=== PATIENT | male | born 1955 | race Caucasian/White ===

== ENCOUNTER → 2021-03-28 08:47 | Outpatient (BNVA) | payer MEDICAID, SELFPAY | PROVIDERS: PCP Physical Medicine & Rehabilitation; Visit Provider Anesthesiology | DX: M51.36 Other intervertebral disc degeneration, lumbar region (principal); G89.4 Chronic pain syndrome; M17.0 Bilateral primary osteoarthritis of knee; F11.20 Opioid dependence, uncomplicated; F17.210 Nicotine dependence, cigarettes, uncomplicated | CPT/HCPCS: 99202 ==

== ENCOUNTER 2021-04-12 05:48 | Outpatient (REF) | payer MEDICAID, SELFPAY ==
--- NOTE | ~2021-04-12 | FL_ITS ---
EXAMINATION: FL FLUOROSCOPY WITH IMAGES CLINICAL INFORMATION: Pain. COMPARISON: None TECHNIQUE: Fluoroscopy performed by Binu Daniel Fluoroscopy time: 0.1 minutes DAP: 0.4 Gycm2 Images: 2 FINDINGS: AP and lateral images demonstrate needle placement for geniculate nerve block. FL/FL guidance in treatment room IMPRESSION: Fluoroscopy guidance for pain management procedure.
== END 2021-04-12 05:49 | disposition home or self-care (01) ==
LOC: HO.RADIR 05:48
PROVIDERS: Visit Provider Anesthesiology
DX: M25.561 Pain in right knee (principal); M47.816 Spondylosis without myelopathy or radiculopathy, lumbar region; M51.36 Other intervertebral disc degeneration, lumbar region; G89.4 Chronic pain syndrome; F11.188 Opioid abuse with other opioid-induced disorder; M17.9 Osteoarthritis of knee, unspecified
CPT/HCPCS: 64454; J3300

== ENCOUNTER → 2021-04-20 09:44 | Outpatient (BNVA) | payer MEDICAID, SELFPAY | PROVIDERS: PCP Nurse Practitioner Family; Visit Provider Anesthesiology | DX: M47.816 Spondylosis without myelopathy or radiculopathy, lumbar region (principal); M51.36 Other intervertebral disc degeneration, lumbar region; G89.4 Chronic pain syndrome; F11.188 Opioid abuse with other opioid-induced disorder | CPT/HCPCS: 99212 ==

== ENCOUNTER → 2021-05-03 07:19 | Outpatient (BNVA) | payer MEDICAID, SELFPAY | PROVIDERS: PCP Nurse Practitioner Family; Visit Provider Anesthesiology | DX: M17.9 Osteoarthritis of knee, unspecified (principal) ==

== ENCOUNTER 2021-05-03 07:23 | Outpatient (REF) | payer MEDICAID, SELFPAY ==
--- NOTE | ~2021-05-03 | FL_ITS ---
EXAMINATION: XR FLUOROSCOPY WITH IMAGES CLINICAL INFORMATION: Osteoarthritis of knee. COMPARISON: None. TECHNIQUE: Fluoroscopy performed by Mabel Finley. Fluoroscopy time: 0.4 minutes DAP: 0.75 Gycm2 Images: 2 FINDINGS: There are needles positioned medial and lateral cortex distal femur and medial proximal tibial cortex for pain management. Mild reduction in the medial compartment joint space is seen. There are no loose bodies. FL/FL guidance in treatment room IMPRESSION: Fluoroscopy was provided to the referring physician for pain management.
== END 2021-05-03 07:24 | disposition home or self-care (01) ==
LOC: HO.RADIR 07:23
PROVIDERS: Visit Provider Anesthesiology
DX: M47.816 Spondylosis without myelopathy or radiculopathy, lumbar region (principal); M51.36 Other intervertebral disc degeneration, lumbar region; G89.4 Chronic pain syndrome; M17.0 Bilateral primary osteoarthritis of knee; F11.188 Opioid abuse with other opioid-induced disorder
CPT/HCPCS: 64624; J3300

== ENCOUNTER → 2021-05-18 08:08 | Outpatient (BNVA) | payer MEDICAID, SELFPAY | PROVIDERS: PCP Nurse Practitioner Family; Visit Provider Anesthesiology | DX: M47.816 Spondylosis without myelopathy or radiculopathy, lumbar region (principal); M51.36 Other intervertebral disc degeneration, lumbar region; M17.9 Osteoarthritis of knee, unspecified; G89.4 Chronic pain syndrome; F11.188 Opioid abuse with other opioid-induced disorder; I82.409 Acute embolism and thrombosis of unspecified deep veins of unspecified lower extremity | CPT/HCPCS: 93971; 99212 ==

== ENCOUNTER 2021-05-18 09:19 | Outpatient (REF) | payer MEDICAID, SELFPAY ==
--- NOTE | ~2021-05-18 | US_ITS ---
EXAMINATION: US VENOUS ULTRASOUND WITH DOPPLER LOWER EXTREMITY, RIGHT CLINICAL INFORMATION: Acute embolism and thrombosis. COMPARISON: None TECHNIQUE: Ultrasound of the deep veins is performed from the hip to the calf with compression sonography and color and pulse Doppler assessment. Spectral analysis with color-flow imaging is performed. FINDINGS: There is normal venous compression and respiratory variation and augmented flow. The visualized common femoral vein, superficial femoral vein, profunda femoral vein, popliteal vein, and the trifurcation region shows no evidence of deep venous thrombosis. There is no significant popliteal fossa cyst. If the patient's symptoms persist, followup ultrasound in 5 days 7 days might be of value to exclude proximal propagation from a non-visualized calf vein. US/US venous duplex LE RT IMPRESSION: No DVT demonstrated in the right lower extremity.
== END 2021-05-18 09:20 | disposition home or self-care (01) ==
LOC: HO.US 09:19
PROVIDERS: PCP Nurse Practitioner Family; Visit Provider Anesthesiology
DX: I82.409 Acute embolism and thrombosis of unspecified deep veins of unspecified lower extremity (principal)
CPT/HCPCS: 93971

== ENCOUNTER → 2021-06-06 08:06 | Outpatient (BNVA) | payer MEDICAID, SELFPAY | PROVIDERS: PCP Nurse Practitioner Family; Visit Provider Anesthesiology | DX: G89.4 Chronic pain syndrome (principal); M47.816 Spondylosis without myelopathy or radiculopathy, lumbar region; M51.36 Other intervertebral disc degeneration, lumbar region; F11.188 Opioid abuse with other opioid-induced disorder | CPT/HCPCS: 99212 ==

== ENCOUNTER → 2022-08-21 08:33 | Outpatient (BNVA) | payer OTHER, SELFPAY | PROVIDERS: PCP Nurse Practitioner Family; Visit Provider Anesthesiology | DX: M47.816 Spondylosis without myelopathy or radiculopathy, lumbar region (principal); M51.36 Other intervertebral disc degeneration, lumbar region; M17.9 Osteoarthritis of knee, unspecified; M25.561 Pain in right knee; G89.4 Chronic pain syndrome; F11.188 Opioid abuse with other opioid-induced disorder | CPT/HCPCS: 99212 ==

== ENCOUNTER 2022-08-31 08:35 | Outpatient (REF) | payer OTHER, SELFPAY ==
--- NOTE | ~2022-08-31 | XR_ITS ---
EXAMINATION: Knee x-ray CLINICAL INFORMATION: Pain COMPARISON: None. TECHNIQUE: 3 views of each knee FINDINGS: Right: There is varus angulation. Bones are osteopenic. No fracture or dislocation. Severe arthritis at the medial femoral tibial and patellofemoral joints. Moderate joint effusion. Left: Varus angulation. Osteopenia. No fracture or dislocation. Severe arthritis at the medial femoral tibial and patellofemoral joints. Moderate to large joint effusion. Osteophyte formation at the tibial tuberosity suggestive of old [place]-Schlatter's disease. XR/XR knee RT 2V IMPRESSION: Severe bilateral arthritis.
--- NOTE | ~2022-08-31 | XR_ITS ---
EXAMINATION: Knee x-ray CLINICAL INFORMATION: Pain COMPARISON: None. TECHNIQUE: 3 views of each knee FINDINGS: Right: There is varus angulation. Bones are osteopenic. No fracture or dislocation. Severe arthritis at the medial femoral tibial and patellofemoral joints. Moderate joint effusion. Left: Varus angulation. Osteopenia. No fracture or dislocation. Severe arthritis at the medial femoral tibial and patellofemoral joints. Moderate to large joint effusion. Osteophyte formation at the tibial tuberosity suggestive of old [place]-Schlatter's disease. XR/XR knee standing BI IMPRESSION: Severe bilateral arthritis.
--- NOTE | ~2022-08-31 | XR_ITS ---
EXAMINATION: Knee x-ray CLINICAL INFORMATION: Pain COMPARISON: None. TECHNIQUE: 3 views of each knee FINDINGS: Right: There is varus angulation. Bones are osteopenic. No fracture or dislocation. Severe arthritis at the medial femoral tibial and patellofemoral joints. Moderate joint effusion. Left: Varus angulation. Osteopenia. No fracture or dislocation. Severe arthritis at the medial femoral tibial and patellofemoral joints. Moderate to large joint effusion. Osteophyte formation at the tibial tuberosity suggestive of old [place]-Schlatter's disease. XR/XR knee LT 2V IMPRESSION: Severe bilateral arthritis.
== END 2022-08-31 08:36 | disposition home or self-care (01) ==
LOC: HO.HOSX 08:35
PROVIDERS: Visit Provider Orthopaedic Surgery
DX: M17.0 Bilateral primary osteoarthritis of knee (principal); F11.11 Opioid abuse, in remission; M47.816 Spondylosis without myelopathy or radiculopathy, lumbar region
CPT/HCPCS: 73560; 73565; 99202

== ENCOUNTER 2022-09-22 13:01 | Outpatient (REF) | payer OTHER, SELFPAY ==
--- NOTE | 2022-09-22 14:34 | MHC.AU.HA1 ---
Hearing Aid Evaluation Date of Visit: 09/22/22 Historical Information: Description of Hearing: Normal hearing at 250 Hz, precipitously dropping to a profound high frequency sensorineural hearing loss bilaterally with 26% speech understanding for the right ear and 28% for the left. Significant, almost daily, history of noise exposure for over 50 years with only occasional use of HPD. Current personal amplification information, if applicable: NONE Summary: Patient is experiencing significant communication difficulties related to this hearing loss. ENT did not discuss the impact of loss and very poor speech discrimination, or potential candidacy for cochlear implant(s). Today, discussed realistic expectations from hearing aids due to the very poor discrimination ability. Provided Communication Strategies handout. Discussed the pros and cons and demonstrated the custom vs. ALVIN/BTE styles of hearing aids. Patient is set on using the custom hearing aids. Patient has an [employer] [id number] Parameter Track Phone. Called Severiano and Nirmala to discuss compatibility. Severiano is not compatible. Nirmala says the model and bluetooth numbers look to be compatible; however, if the phone does not have a compatible hands free model, then they may not connect for phone calls. We will only know when the aids are fit and pairing attempted. Patient understands the potential problem, and wants to proceed with the Phonak aids Hearing Aid Prescription: Based on the individual?s shared listening needs, communication environments, dexterity, desire for connectivity, and personal preferences, the following prescription for amplification has been made: Right ear: Make, Model, Color: Phonak Virto P 70-312 [place] Battery Size: 312 Director Of Nurses Registry/Slim Tube: Power Left ear:Left ear prescription to be same as Right Hearing Aid above: Make, Model, Color: Phonak Virto P 70-312 [place] Battery Size: 312 Director Of Nurses Registry/Slim Tube: Power Plan of Care: Patient wishes to purchase hearing aids as prescribed Action Taken/Action Needed: Earmold Impressions Taken, Hearing Instrument Fitting to be scheduled when materials arrive Comments: Medical clearance from ENT in chart. Primary Diagnosis: H90.3 Bilateral Sensorineural Hearing Loss Signature:Provider: Kwame Ma, [facility]
== END 2022-09-22 13:02 | disposition home or self-care (01) ==
LOC: HO.HAP 13:01
PROVIDERS: Visit Provider Internal Medicine
DX: Z46.1 Encounter for fitting and adjustment of hearing aid (principal); H90.3 Sensorineural hearing loss, bilateral
CPT/HCPCS: 92591; V5275

== ENCOUNTER 2022-10-05 17:36 | Outpatient (REF) | payer OTHER, SELFPAY ==
--- NOTE | ~2022-10-05 | MR_ITS ---
EXAMINATION: MR LUMBAR SPINE WITHOUT CONTRAST CLINICAL INFORMATION: Low back pain. Bilateral lower extremity radiculopathy. COMPARISON: None available. TECHNIQUE: Multiplanar, multisequence imaging was obtained. FINDINGS: VERTEBRAL BODIES AND PARASPINAL STRUCTURES: The marrow signal is mildly heterogeneous with regions of fatty change. Reduced intradiscal signal present throughout the imaged lower thoracic and lumbar spine due to degeneration. Multilevel endplate Schmorl's nodes present. There are no compression fractures. Right lateral endplate edema visible at the L5-S1 level with moderate disc space narrowing and a minimal anterolisthesis. There is more significant loss of disc height at the L4-L5 level with prominent endplate Schmorl's nodes and mild retrosubluxation. There is a grade 1 anterolisthesis with unroofing of the disc at the L3-L4 level. Moderate multilevel disc space narrowing and degenerative disc bulges with endplate Schmorl's nodes present at the lower thoracic levels. There is a rightward curvature of the lumbar spine. The paraspinal soft tissues are unremarkable. Eaql-uh-hqskzyoa degenerative changes affect the sacroiliac joints bilaterally. CONUS MEDULLARIS AND CAUDA EQUINE: The distal cord, conus tip, and cauda equina nerve roots appear normal. SPINAL LEVELS: L1-L2: Moderate loss of disc height with endplate Schmorl's nodes and a mild disc bulge. No central canal stenosis or foraminal narrowing. L2-L3: Disc degeneration and broad-based posterior disc bulge with a midline posterior annular fissure. Hypertrophic facet arthropathy also present. Findings result in mild central canal stenosis and moderate bilateral foraminal narrowing. Bulging disc contacts the L3 nerve roots in the subarticular zones. L3-L4: Anterolisthesis and unroofed disc bulge with exuberant facet arthropathy and thickening of the ligamentum flavum. Findings result in high-grade central canal stenosis and severe thecal sac compression. Facet spurring impinges upon the L4 nerve roots in the lateral recesses as well. Significant bilateral foraminal encroachment with unroofed disc and facet spurring distorting the exiting L3 nerve roots, worse on the right side. L4-L5: Posterior subluxation and diffuse disc bulge with severe facet arthropathy resulting in moderate central canal stenosis. Bulging disc and facet spurring compress the L5 nerve roots in the subarticular zones. Severe bilateral foraminal narrowing and distortion of the L4 nerve roots. L5-S1: Mild anterolisthesis and broad-based disc bulge with hfogkcxe-mq-miznng facet arthropathy, worse on the right side. No central canal stenosis. Left-sided facet spurring and bulging disc impinge upon the left S1 nerve root. Severe bilateral foraminal narrowing and compression of the L5 nerve roots, worse on the right side. Mild endplate edematous changes laterally on the right side. MR/MR lumbar spine wo con IMPRESSION: 1. Extensive multilevel degenerative disc disease and facet arthropathy, most severe at the L3-L4 level where there is high-grade central canal stenosis and thecal sac compression. Facet spurring impinges upon the L4 nerve roots in the lateral recesses. Significant foraminal narrowing with distortion of the L3 nerve roots, worse on the right side. 2. Moderate central canal stenosis due to spondylosis at L4-L5 with compression of the L5 nerve roots in the subarticular zones. Severe foraminal narrowing with distortion of the L4 nerve roots. 3. Mild anterolisthesis and uaqdbozo-md-qwzooa facet arthropathy at L5-S1. Bulging disc and facet spurring impinge upon the left S1 nerve root. Severe foraminal narrowing with compression of the L5 nerve roots, more so on the right side. 4. Mild central canal stenosis at the L2-L3 level with moderate bilateral foraminal narrowing and bulging disc contacting the L3 nerve roots in the subarticular zones.
== END 2022-10-05 17:37 | disposition home or self-care (01) ==
LOC: HO.MRI 17:36
PROVIDERS: PCP Family Medicine; Visit Provider Orthopaedic Surgery
DX: M47.816 Spondylosis without myelopathy or radiculopathy, lumbar region (principal); M54.16 Radiculopathy, lumbar region
CPT/HCPCS: 72148

== ENCOUNTER 2022-10-18 14:48 | Outpatient (REF) | payer OTHER, SELFPAY | END 2022-10-18 14:49 | disposition home or self-care (01) | LOC: HO.HAP 14:48 | PROVIDERS: PCP Family Medicine; Visit Provider Otolaryngology | DX: Z46.1 Encounter for fitting and adjustment of hearing aid (principal); H90.3 Sensorineural hearing loss, bilateral | CPT/HCPCS: 92595; V5011; V5020; V5160; V5260; V5266 ==

== ENCOUNTER 2022-11-08 14:36 | Outpatient (REF) | payer OTHER, SELFPAY | END 2022-11-08 14:37 | disposition home or self-care (01) | LOC: HO.HAP 14:36 | PROVIDERS: Visit Provider Family Medicine | DX: Z13.89 Encounter for screening for other disorder (principal) ==

== ENCOUNTER 2022-12-01 09:25 | Outpatient (AMB) | payer OTHER, SELFPAY ==
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
== END 2022-12-01 10:11 | disposition home or self-care (01) ==
PROVIDERS: PCP Family Medicine; Referring Provider Orthopaedic Surgery; Visit Provider Physician Assistant
DX: M54.16 Radiculopathy, lumbar region (principal); R53.1 Weakness
CPT/HCPCS: 99204

== ENCOUNTER → 2022-12-01 09:25 | Outpatient (BNVA) | payer OTHER, SELFPAY | PROVIDERS: PCP Family Medicine; Referring Provider Orthopaedic Surgery; Visit Provider Physician Assistant | DX: M54.16 Radiculopathy, lumbar region (principal); M48.061 Spinal stenosis, lumbar region without neurogenic claudication; R53.1 Weakness | CPT/HCPCS: 99202 ==

== ENCOUNTER 2023-05-14 13:13 | Outpatient (REF) | payer MEDICAID, SELFPAY ==
--- NOTE | 2023-05-14 14:04 | MHC.AU.HA3 ---
Hearing Instrument Follow-Up- Binaural Date of Visit: 05/14/23 Right Ear: Make, Model, Color, Serial Number: Nirmala Virto P 70-312 [place] SN [id number] Stenocaptioner Repair Warranty: 01/06/2026 Stenocaptioner Loss and Damage Warranty: 01/06/2026 [facility] Service Plan: 10/19/2023 Battery Size: 312 Heading And Priming Operator/Slim Tube: Power Earmold/Dome/CShell/SlimTip: Type of Wax Guard: Cerustop Dispensed By: Date of Fittin10/18/2022 Left Ear: Make, Model, Color, Serial Number: Nirmala Virto P 70-312 [place] SN [id number] Stenocaptioner Repair Warranty: 01/06/2026 Stenocaptioner Loss and Damage Warranty: 01/06/2026 [facility] Service Plan: Battery Size: 312 Heading And Priming Operator/Slim Tube: Power Earmold/Dome/CShell/SlimTip: Type of Wax Guard: Cerustop Dispensed By: Date of Fittin10/18/2022 Follow-Up Summary: Reports aids intermittently lose connection to phone. Cleaned and checked aids, listening check positive. Checked for firmware update, aids are UTD. Forgot pairings. Re connected aids in bluetooth settings and in leti. Tested streaming connection in office, working. Recommendations: Recommendations: Hearing instrument follow-up or maintenance as needed. Diagnosis Code(s): Primary Diagnosis: H90.3 Bilateral Sensorineural Hearing Loss Signature: Provider: Kwame Celis, CCC-A
== END 2023-05-14 13:14 | disposition home or self-care (01) ==
LOC: HO.HAP 13:13
PROVIDERS: Visit Provider Family Medicine
DX: Z13.89 Encounter for screening for other disorder (principal)

== ENCOUNTER 2023-05-17 17:58 | Outpatient (REF) | payer MEDICAID, SELFPAY ==
--- NOTE | ~2023-05-17 | MR_ITS ---
EXAMINATION: MR BRAIN WITHOUT CONTRAST CLINICAL INFORMATION: Weakness COMPARISON: None available. TECHNIQUE: MRI of the brain was obtained using routine sequences without contrast. FINDINGS: No acute intracranial hemorrhage or infarct. Scattered and confluent periventricular white matter T2/FLAIR hyperintensities, nonspecific however commonly seen with small vessel ischemic disease. No midline shift or hydrocephalus. No acute extra-axial fluid collections. The osseous structures are unremarkable. The pituitary gland, pineal gland and remaining midline structures are unremarkable. No orbital pathology. Mild mucosal thickening of the paranasal sinuses. The mastoid air cells are clear. MR/MR head/brain wo con IMPRESSION: No acute intracranial abnormality.
--- NOTE | ~2023-05-17 | MR_ITS ---
EXAMINATION: MR CERVICAL SPINE WITHOUT CONTRAST CLINICAL INFORMATION: Cervical radiculopathy, weakness COMPARISON: None available. TECHNIQUE: MRI of the cervical spine was obtained using routine sequences without contrast. FINDINGS: The visualized cervical vertebrae are intact. No focal bone lesion with abnormal signal can be seen. Evaluation of the intervertebral discs show: C2/C3: Intervertebral disc height is normal, with normal T2 signal. No focal disc herniation is seen. Bilateral C2-C3 neural foramina are patent. Bilateral apophyseal joints are intact with normal alignment. C3/C4: There is anterior C3 on C4 displacement by 0.35 cm. Intervertebral disc height is moderately decreased, with moderate loss of T2 signal. Mild posterior disc protrusion effacing the anterior thecal sac is seen. There is moderate spinal stenosis with AP diameter of the spinal canal reduced to 8.1 mm. Bilateral C3-C4 neural foramina are severely stenosed. Bilateral apophyseal joints are intact with normal alignment. C4/C5: There is posterior C4 on C5 displacement by 0.31 cm. Intervertebral disc height is markedly decreased, with marked loss of T2 signal. Moderate posterior osteophyte disc complex protrusion effacing the anterior thecal sac is seen. There is marked spinal stenosis with AP diameter of the spinal canal reduced to 7.6 mm. Bilateral C4-C5 neural foramina are severely stenosed. Bilateral apophyseal joints are intact with normal alignment. C5/C6: Intervertebral disc height is normal, with moderate loss of T2 signal. Mild posterior disc protrusion effacing the anterior thecal sac is seen. There is marked asymmetric right C5-C6 neural foraminal stenosis. Bilateral apophyseal joints are intact with normal alignment. C6/C7: Intervertebral disc height is normal, with normal T2 signal. No focal disc herniation is seen. Bilateral C6-C7 neural foramina are patent. Bilateral apophyseal joints are intact with normal alignment. C7/T1: Intervertebral disc height is normal, with normal T2 signal. No focal disc herniation is seen. Bilateral C7-T1 neural foramina are patent. Bilateral apophyseal joints are intact with normal alignment. Cervical spinal cord is normal in position and signal. Multilevel bilateral apophyseal joint and uncovertebral joint osteoarthritis with loss of joint space, sclerosis, facet hypertrophy and osteophytosis are seen. Mild posterior T3-T4 and T4-T5 disc protrusions are also present. MR/MR cervical spine wo con IMPRESSION: 1. Grade 1 C3-C4 spondylolisthesis with moderate degenerative disc disease and moderate spinal stenosis. Severe bilateral neural foraminal stenosis. 2. Grade 1 C4-C5 retrolisthesis with moderate degenerative disc disease and marked spinal stenosis. Severe bilateral neural foraminal stenosis. 3. Mild posterior disc protrusion at C5-C6 with marked asymmetric right C5-C6 neural foraminal stenosis. 4. Multilevel bilateral apophyseal joint and uncovertebral joint osteoarthritis. 5. Mild posterior disc protrusions at T3-T4 and T4-T5.
== END 2023-05-17 17:59 | disposition home or self-care (01) ==
LOC: HO.MRI 17:58
PROVIDERS: PCP Family Medicine; Visit Provider Physician Assistant
DX: R53.1 Weakness (principal); M54.12 Radiculopathy, cervical region
CPT/HCPCS: 70551; 72141

== ENCOUNTER 2023-05-30 13:11 | Outpatient (AMB) | payer MEDICAID, SELFPAY ==
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
== END 2023-05-30 13:35 | disposition home or self-care (01) ==
PROVIDERS: PCP Family Medicine; Visit Provider Neurological Surgery
DX: M47.12 Other spondylosis with myelopathy, cervical region (principal); M47.22 Other spondylosis with radiculopathy, cervical region; M47.816 Spondylosis without myelopathy or radiculopathy, lumbar region
CPT/HCPCS: 99214

== ENCOUNTER → 2023-05-30 13:11 | Outpatient (BNVA) | payer MEDICAID, SELFPAY | PROVIDERS: PCP Family Medicine; Visit Provider Neurological Surgery | DX: M47.12 Other spondylosis with myelopathy, cervical region (principal); M47.22 Other spondylosis with radiculopathy, cervical region; M47.816 Spondylosis without myelopathy or radiculopathy, lumbar region | CPT/HCPCS: 99212 ==

== ENCOUNTER 2023-08-08 06:43 | Day surgery (SDC) | payer MEDICAID, SELFPAY ==
[2023-07-25 12:32] VITALS: BP 135/72; PULSE 72; RESP 18; O2SAT 96; BMI 29.0
--- NOTE | 2023-08-07 13:36 | HO.ANESPROP2 ---
HPI - Anesthesia Eval Consult details Narrative: 67yo M for C3-4,C4-5 Ant Cerv Disc w/ Fusion Multi PAT with Dr Pineda 07/25/23 Medically cleared at [facility] preop clinic Hx poly sub. Suboxone daily PMFSH Active Problems Active Problems: All Active Problems Cervical spondylosis with myelopathy and radiculopathy (Acute) Left-sided weakness (Acute) Lumbar radiculopathy (Acute) History of opioid abuse (Acute) Osteoarthritis of left knee (Acute) Osteoarthritis of right knee (Acute) Right knee pain (Acute) DVT (deep venous thrombosis) (Acute) Osteoarthritis of knee, unspecified (Acute) Opioid abuse with other opioid-induced disorder (Acute) Chronic pain syndrome (Acute) Disc degeneration, lumbar (Acute) Spondylosis of lumbar spine (Acute) Past Medical History Medical History Back pain Arthritis GERD (gastroesophageal reflux disease) Numbness AAA (abdominal aortic aneurysm) History of kidney stones C6 radiculopathy Hard of hearing Central stenosis of spinal canal Knee osteoarthritis Trauma in childhood Erectile dysfunction Anemia Adrenal adenoma Tobacco abuse Pulmonary nodules Depression History of ETOH abuse Osteoarthritis of knee, unspecified Opioid abuse with other opioid-induced disorder Chronic pain syndrome Disc degeneration, lumbar Spondylosis of lumbar spine Surgical History Surgical History History of extraction of renal calculus H/O colonoscopy H/O inguinal hernia repair Social History Social History Are you a primary manager urgent care to a significant other at home: No Do you presently have visiting nurse or other home services: No Alcohol intake: former Comment: pressure Patient Tobacco Use Status: Current everyday Tobacco user Tobacco use type: Cigarette Cigarettes Per Day: 4 Advance Directives: No Advance Directives Information Provided: No Do you have a plan to hurt others: No Plan Meds Allergies Allergy/AdvReac Type Severity Reaction Status Date / Time No Known Allergies Allergy Verified 08/10/23 15:22 Home Medications ?Medication ?Instructions ?Recorded ?Confirmed ?Last Taken ?Type buprenorphine 12 mg-naloxone 3 mg 8 mg sublingual BID 03/28/21 07/25/23 08/07/23 History sublingual film (Suboxone) naproxen 500 mg tablet 500 mg PO TID 03/28/21 07/25/23 08/07/23 History acamprosate 333 mg tablet,delayed 666 mg PO TID 07/25/23 07/25/23 08/07/23 History release bupropion HCl 100 mg tablet,12 hr 100 mg PO BID 07/25/23 07/25/23 08/07/23 History sustained-release capsaicin 0.075 % topical cream 1 appl topical BID 07/25/23 07/25/23 08/07/23 History gabapentin 100 mg capsule 200 mg PO BID 07/25/23 07/25/23 08/07/23 History ibuprofen 200 mg tablet 400 mg PO Q8H PRN Pain 07/25/23 07/25/23 08/07/23 History omeprazole 20 mg tablet,delayed 60 mg PO DAILY@1700 07/25/23 07/25/23 08/07/23 History release Exam Height,Weight and Vital Signs: Height 5 ft 3 in Weight 74.389 kg Last Vital Signs Pulse 72 07/25/23 12:32 Resp 18 07/25/23 12:32 BP 135/72 07/25/23 12:32 Pulse Ox 96 07/25/23 12:32 O2 Del Method Room Air 07/25/23 12:32 Pertinent Lab Results Pertinent Lab Results: CBC and BMP 05/2023 from outside facility WNL Narrative Narrative: EKG 07/2023 NSR with SA Low volt QRS Assessment and Plan Assessment Anesthesia Assessment: Chart Reviewed
--- NOTE | ~2023-08-08 | FL_ITS ---
EXAMINATION: XR FLUOROSCOPY WITH IMAGES CLINICAL INFORMATION: C3-4, C4-5 anterior cervical disc fusion COMPARISON: None available. TECHNIQUE: Fluoroscopy Supervised By: Dr. Johnny Aviles. Fluoroscopy Time: 0: 04. 9. Cumulative Dose: 0.8440 mGy. DAP: 0.262 Gycm2. Images: 3. FINDINGS: Fluoroscopic guidance provided for procedure. Images provided demonstrate overlying surgical hardware and devices with anterior disc hardware at C3-C4-C5 levels. Please refer to operative report for more detailed evaluation. FL/FL guidance in OR IMPRESSION: Fluoroscopic guidance provided for procedure. Please refer to operative report for more detailed evaluation.
--- NOTE | 2023-08-08 06:58 | MHC.SHP ---
Pre-Procedural Eval Section A - 24 Hr Update-Section A only Date of Service: 08/08/23 Section B - Complete if H&P > 30 days Chief Complaint: Other spondylosis with myelopathy, cervical region Allergies: Allergies Allergy/AdvReac Type Severity Reaction Status Date / Time No Known Allergies Allergy Verified 06/06/21 08:25 Review of Systems Sugical H&P ROS: Negative: Constitution, Cardiovascular, Respiratory, Neurological, Psychiatric, Hem-Onc, Allergic/Immunologic, Gastrointestinal, Genitourinary, Musculoskeletal, Integumentary, Endocrine and Eyes/Ears/Nose/Throat Exam Surgical H&P Exam: Not Evaluated: HEENT, Not Evaluated: Heart, Not Evaluated: Lungs, Not Evaluated: Extremities, Not Evaluated: Abdomen, Not Evaluated: Skin and Not Evaluated: Neurological Plan I have reviewed the history and physical and performed a pertinent physical examination on my patient. No changes have occurred unless specified. The plan remains the same, C3-4, C4-5 ACDF. Time Spent With Patient Time: Total time managing care of this patient today _10___ minutes.
[2023-08-08 07:18] VITALS: BP 114/73; PULSE 75; RESP 18; TEMP 37.2; O2SAT 92
[2023-08-08] MEDS: Gabapentin 300 MG CAPSULE PO (07:31)
[2023-08-08] MEDS: methocarbamoL 750 MG TABLET PO (07:31)
[2023-08-08] MEDS: Lactated Ringers 1,000 ML 100 ML IVCONT (07:31)
--- NOTE | 2023-08-08 08:06 | HO.ANESPROP2 ---
[facility] Active Problems Active Problems: All Active Problems Cervical spondylosis with myelopathy and radiculopathy (Acute) Left-sided weakness (Acute) Lumbar radiculopathy (Acute) History of opioid abuse (Acute) Osteoarthritis of left knee (Acute) Osteoarthritis of right knee (Acute) Right knee pain (Acute) DVT (deep venous thrombosis) (Acute) Osteoarthritis of knee, unspecified (Acute) Opioid abuse with other opioid-induced disorder (Acute) Chronic pain syndrome (Acute) Disc degeneration, lumbar (Acute) Spondylosis of lumbar spine (Acute) Past Medical History Medical History Back pain Arthritis GERD (gastroesophageal reflux disease) Numbness AAA (abdominal aortic aneurysm) History of kidney stones C6 radiculopathy Hard of hearing Central stenosis of spinal canal Knee osteoarthritis Trauma in childhood Erectile dysfunction Anemia Adrenal adenoma Tobacco abuse Pulmonary nodules Depression History of ETOH abuse Osteoarthritis of knee, unspecified Opioid abuse with other opioid-induced disorder Chronic pain syndrome Disc degeneration, lumbar Spondylosis of lumbar spine Functional capacity: uses cane/walker Family History Family history of problems with anesthesia: No Surgical History Surgical History History of extraction of renal calculus H/O colonoscopy H/O inguinal hernia repair History of Problems with Anesthesia: No Social History Social History Are you a primary acute care assistant to a significant other at home: No Do you presently have visiting nurse or other home services: No Patient Tobacco Use Status: Current everyday Tobacco user Tobacco use type: Cigarette Cigarettes Per Day: 4 Use of substances other than those prescribed or required for medical reasons: No Have you been hit, kicked, punched, or otherwise hurt by someone within the past year? If so, by whom?: No Are you DNR?: No Advance Directives: No Advance Directives Information Provided: Yes Advance Directives on File: No Recently lost weight without trying: No Eating poorly because of decreased appetite: No Nutrition Risks: No Nutritional Risk Poor oral hygiene: Yes (no teeth) Meds Allergies Allergy/AdvReac Type Severity Reaction Status Date / Time No Known Allergies Allergy Verified 06/06/21 08:25 Active Medications: Current Medications Albuterol Sulfate (Albuterol Sulfate (0.083%) 2.5 Mg/3 Ml Vial.Neb) 2.5 mg INHALE ONCE PRN PRN Reason: Shortness of Breath/Wheezing Lactated Ringer's (Lr) 1,000 mls @ 100 mls/hr IVCONT .Q10H TOSHIA Last Admin: 08/08/23 07:31 Dose: 100 mls/hr Home Medications ?Medication ?Instructions ?Recorded ?Confirmed ?Last Taken ?Type buprenorphine 12 mg-naloxone 3 mg 8 mg sublingual BID 03/28/21 07/25/23 Unknown History sublingual film (Suboxone) naproxen 500 mg tablet 500 mg PO TID 03/28/21 07/25/23 Unknown History acamprosate 333 mg tablet,delayed 666 mg PO TID 07/25/23 07/25/23 Unknown History release bupropion HCl 100 mg tablet,12 hr 100 mg PO BID 07/25/23 07/25/23 Unknown History sustained-release capsaicin 0.075 % topical cream 1 appl topical BID 07/25/23 07/25/23 Unknown History gabapentin 100 mg capsule 200 mg PO BID 07/25/23 07/25/23 Unknown History ibuprofen 200 mg tablet 400 mg PO Q8H PRN Pain 07/25/23 07/25/23 Unknown History omeprazole 20 mg tablet,delayed 60 mg PO DAILY@1700 07/25/23 07/25/23 Unknown History release Exam Height,Weight and Vital Signs: Height 5 ft 3 in Weight 74.389 kg Last Vital Signs Temp 98.9 F 08/08/23 07:18 Pulse 75 08/08/23 07:18 Resp 18 08/08/23 07:18 BP 114/73 08/08/23 07:18 Pulse Ox 92 08/08/23 07:18 O2 Del Method Room Air 08/08/23 07:18 Airway Mallampati Class: III TM Dist: >3cm Neck ROM: Full Heart: RRR Lungs: CTA Assessment and Plan Assessment Anesthesia Assessment: Anesthesia Plan Discussed and Smoking Cess. Discussed Final Anesthetic Review Family History of Problems with Anesthesia: No History of Problems with Anesthesia: No NPO: Yes ASA Class: III Final Preanesthetic Review: Meds/Allgs Chart Reviewed, Consent Obtained/Reviewed and Anes Risks/Benef Reviewed Patient Risk: Intermediate Procedure Risk: Intermediate Anesthetic Plan Anesthetic Plan: GA Disposition: Standard PACU
--- NOTE | 2023-08-08 11:24 | P.OP_ITS ---
Operative Note Operative Note Date of Service: 08/08/23 Narrative: Preoperative Diagnosis: Cervical myelopathy Procedure: C3-C4, C4-C5 Anterior discectomy, arthrodesis and implantation cage ; C3-C5 anterior instrumentation ; local autograft; microscope Informed Consent was obtained for this operation. I have explained the nature, purpose and benefits of the operation. I have discussed the risks and benefit of the operation including possible complications or adverse events with pat ient/family. Alternative(s) were discussed with the patient with their relative benefits and risks as well as the consequences of not accepting the operation were included in obtaining consent. Surgeon: FITO JARVIS MD, PHD Procedure Assisted By: BAIRON Flores Description of Procedure: This 67-year-old male suffering from progressive cervical myelopathy. MRI shows severe spinal cord compression C3-C4, C4-C5. He was offered an anterior diskectomy and fusion of these levels. The procedure complications were explained. The patient was consented. The patient was brought to the operating room and endotracheally intubated. The patient was put in supine position with slight extension of the neck. Prep and drape was done followed by timeout. A mid cervical incision was made followed by opening of the platysma. The prevertebral fascia was reached following the natural planes while the physician executive administrative assistant provided manual retraction. The prevertebral fascia was opened to expose the disc space. A spinal needle was placed in the disk space to confirm the correct level with xray. The longus colli muscles were released bilaterally and a self retaining retractor was inserted. An initial diskectomy was done of the C3-4 and C4-C5 level. Two Biscoe pins were placed in the C3-C4 vertebral bodies and distraction was give over the interspace. The discectomy was completed toward the posterior annulus of the disc. The microscope was brought in. The remainder of the discectomy was completed. The posterior ligament was opened and resected to expose the underlying dura. Osteophytes were resected from the body of C3 and C4 and saved for autograft. Bilateral foraminotomies were done. The endplates were prepared after which a 6 mm cage filled with autograft was inserted into the disc space. A separate attached plate was locked down with 2 x 14 mm screws as anterior instrumentation. Then attention was turned to the C4-C5 level. The diskectomy was completed and the posterior longitudinal ligament was opened to expose the underlying dura. Several large osteophytes were resected from the body of C4 and C5 to decompress the spinal cord. Bilateral foraminotomies down. The endplates were prepared after which a 6 mm cage was inserted filled with the autograft. Separate attached plate was locked down with 2 x 14 mm screws as anterior instrumentation. Final x-rays in AP and lateral projection showed a satisfactory position of the implants. The physician executive administrative assistant took over. The Biscoe pin was removed. Hemostasis was done. He closed the incision in 2 layers with a 3-0 Vicryl. Steri-Strips used to approximate incision. An OpSite with Tegaderm was used to cover the incision. All sponge and needle counts were correct. Patient was extubated and transported in stable is to recovery room. Anesthesia: General Estimated Blood Loss (ml): 10 mL Duration of Surgery: 1 hour 15 min Postoperative Plan: Discharge home Complications: None
--- NOTE | 2023-08-08 11:27 | P.DS_ITS ---
DS: Providers Provider Date of Service: 08/08/23 Primary care physician: Franca Wells MD DS: Summary Time Attestation Discharge Coordination Time (in mins): 15 Quality: Safe Use of Opioids Does Pt have an Active Cancer Diagnosis on the Problem List?: No Quality: Stroke Does the patient have a stroke diagnosis?: No Physical Exam Vital Signs: Vital Signs: Last Vital Signs Temp 98.9 F 08/08/23 07:18 Pulse 75 08/08/23 07:18 Resp 18 08/08/23 07:18 BP 114/73 08/08/23 07:18 Pulse Ox 92 08/08/23 07:18 O2 Del Method Room Air 08/08/23 07:18 BMI result Body Mass Index 29.0 Discharge Plan Discharge Patient Disposition: Home, Self-Care Referrals: Franca Wells MD [Primary Care Provider] - 1 Week Discharge Medications: New baclofen 10 mg tablet 10 mg PO TID Qty: 30 0RF acetaminophen 500 mg tablet 1,000 mg PO TID PRN (Reason: moderate pain (scale score 5-6)) Qty: 42 0RF Continued bupropion HCl 100 mg tablet sustained-release 12 hr 100 mg PO BID acamprosate 333 mg tablet,delayed release (DR/EC) 666 mg PO TID capsaicin 0.075 % Cream 1 appl TOPICAL BID Rx Instructions: do not wash area for at least 30 min after application ibuprofen 200 mg Tablet 400 mg PO Q8H PRN (Reason: Pain) gabapentin 100 mg Capsule 200 mg PO BID omeprazole 20 mg Tablet,Delayed Release (Dr/Ec) 60 mg PO DAILY@1700 buprenorphine-naloxone [Suboxone] 12-3 mg film 8 mg sublingual BID naproxen 500 mg tablet 500 mg PO TID Discharge Orders: Discharge Order (Routine); Ordered 08/08/23 Ordered By: Lv Andrea Diet: Advance to usual diet Activity on Discharge: As tolerated Activity Restrictions/Additional Instructions: After your spinal surgery we ask you to observe the following restrictions/guidelines: Activity: It is normal to feel pain in the back of your neck, and to have some discomfort with swallowing. It is normal to feel some discomfort as you increase your activity, but that will improve with time. We ask you avoid heavy lifting or acitivities that cause pain. As a general rule, 8lbs is a safe limit for lifting right after surgery. Walk as much as you feel comfortable but not to exhaustion. You will feel extra tired the first few days after surgery. Stay well hydrated. It is OK to walk up and down stairs You may return to driving when you are off narcotics (such as vicodin, oxycodone, dilaudid, etc), and you are back to normal functional capacity. If you have any concerns please check with office before driving. Return to work is specific to each patient and each surgery, so please speak with your doctor/PA at first follow up. Please bring paperwork such as FMLA at that time if you need it filled out. Medications: Your currently prescribed a narcotic opioid medication, so please continue using that for pain control. Additional opioid prescriptions would be contraindicated at this time. In addition to this we have sent in a prescriptio n for muscle relaxers and Tylenol. These can be refilled if needed. If you take blood thinner such as aspirin, Plavix, Coumadin, Effient, Eliquis etc for conditions such as Afib, DVT, Pulmonary embolus, coronary disease, stents etc please speak with your surgeon about specific details as to when you can resume these medications. You can resume NSAIDs on post op day 1 (eg: Motrin, Naproxen, etc). Follow up: Please call the office, , after surgery to arrange a 3 week follow up for wound check. Wound Care: You may remove your dressing on the first day after surgery. ?You may ?leave open to air. Please do not remove the steri strips underneath. they will fall off on their own in one week. IT IS NORMAL FOR THE WOUND TO OOZE OR BE BLOODY FOR A FEW DAYS AFTER SURGERY. ?IF THIS HAPPENS JUST PLACE NEW DRESSING OVER IT TO AVOID STAINING CLOTHES. You may shower on post op day # 1 We ask that you do not let the water soak the wound. If it does get wet, just towel dry lightly. Please do not scrub your incision or place any type of chemical/ointment on the wound. No tub baths, pools or jacuzzis for one month. If you have any leaking or redness from your wound, or fevers, please call the office. Print Language: [place] Citizen
[2023-08-08 11:36] VITALS: BP 124/75; PULSE 80; RESP 16; TEMP 36.4; O2SAT 92
[2023-08-08 11:41] VITALS: BP 126/69; PULSE 70; RESP 16; O2SAT 93
[2023-08-08 11:46] VITALS: BP 122/74; PULSE 69; RESP 16; O2SAT 98
[2023-08-08 11:51] VITALS: BP 130/73; PULSE 70; RESP 18; O2SAT 95
[2023-08-08 12:06] VITALS: BP 113/54; PULSE 67; RESP 18; TEMP 36.6; O2SAT 98
== END 2023-08-08 13:57 | disposition home or self-care (01) ==
PROVIDERS: PCP Family Medicine; Visit Provider Neurological Surgery
PROC: (CPT 22551; principal; 2023-08-08 08:40)
DX: M47.12 Other spondylosis with myelopathy, cervical region (principal); G89.4 Chronic pain syndrome; M47.816 Spondylosis without myelopathy or radiculopathy, lumbar region; Z79.1 Long term (current) use of non-steroidal anti-inflammatories (NSAID); Z79.899 Other long term (current) drug therapy; F11.10 Opioid abuse, uncomplicated; F17.210 Nicotine dependence, cigarettes, uncomplicated
CPT/HCPCS: 22551; 22552; 22853; 20936; 22845; C1713; C1889; J0131; J0690; J1100; J1170; J1596; J1885; J2250; J2405; J2704; J3010; L8699

== ENCOUNTER → 2023-08-08 06:43 | Outpatient (BNV) | payer MEDICAID, SELFPAY | PROVIDERS: PCP Family Medicine; Visit Provider Neurological Surgery | DX: M47.12 Other spondylosis with myelopathy, cervical region (principal) | CPT/HCPCS: 20936; 22551; 22552; 22845; 22853; 99499 ==

== ENCOUNTER 2023-08-10 14:45 | Emergency (ER) | payer MEDICAID, SELFPAY ==
--- NOTE | 2023-08-10 | ECG_ITS ---
Test Reason : AMS Blood Pressure : / mmHG Vent. Rate : 086 BPM Atrial Rate : 086 BPM P-R Int : 130 ms QRS Dur : 078 ms QT Int : 372 ms P-R-T Axes : 063 -18 077 degrees QTc Int : 445 ms Sinus rhythm with Premature supraventricular complexes Cannot rule out Anterior infarct , age undetermined Nonspecific ST and T wave abnormality Abnormal ECG No previous ECGs available Referred By: Generic ED Physician Electronically Signed By:DYAN WREN
--- NOTE | ~2023-08-10 | CT_ITS ---
EXAMINATION: CT head/brain wo IV con CLINICAL INFORMATION: Reason for Exam Change in mental status, R/O stroke, fracture, ble COMPARISON: MRI of the brain without contrast 05/17/2023 TECHNIQUE: Contiguous axial imaging was performed from the skull base to vertex without intravenous contrast. Sagittal and coronal reformatted images were obtained. This CT examination was performed using dose optimization techniques as appropriate, variously including the following: * Automated exposure control * Adjustment of mA and/or kV according to patient size (this includes techniques or standardized protocols for targeted exams where dose is matched to indication/reason for exam; i.e. extremities or head) Use of iterative reconstruction technique DLP: 867 mGy-cm FINDINGS: No acute osseous or soft tissue abnormality. The mastoid air cells and visualized portions of the paranasal sinuses are well aerated. There is no evidence of acute intracranial hemorrhage or territorial infarction. No abnormal mass effect or midline shift is seen. Hauser to white matter differentiation is well preserved. No extra-axial fluid collections are identified. No hydrocephalus. No significant volume loss. Patchy periventricular and deep white matter hypoattenuation is consistent with mild small vessel ischemic changes. CT/CT head/brain wo IV con IMPRESSION: No acute intracranial abnormality including hemorrhage, mass effect, hydrocephalus, or acute territorial edematous infarction.
--- NOTE | ~2023-08-10 | CT_ITS ---
EXAMINATION: CT ANGIOGRAM OF THE CHEST WITH CONTRAST (CT PULMONARY ANGIOGRAM FOR PE) CLINICAL INFORMATION: Reason for Exam Neck surgery 08/07, hypoxia, evaluate for PE, pneumonia COMPARISON: No pertinent prior studies are available for comparison. TECHNIQUE: Prior to contrast administration, noncontrast localization images were obtained. Subsequently, multidetector volumetric imaging was performed from the thoracic inlet to below the diaphragms following the administration of 85 mL Omnipaque 350 intravenous contrast. No contrast reaction reported. Sagittal, coronal, and MIP oblique sagittal reformatted images were obtained on the CT workstation, uploaded to PACS, and reviewed. This CT examination was performed using dose optimization techniques as appropriate, variously including the following: *Automated exposure control *Adjustment of mA and/or kV according to patient size (this includes techniques or standardized protocols for targeted exams where dose is matched to indication/reason for exam; i.e. extremities or head) *Use of iterative reconstruction technique DLP: Total exam dose-length product 314 mGy-cm FINDINGS: LUNGS AND PLEURA: Moderate centrilobular emphysema. Trachea has a saber-sheath configuration. Bronchial nolen are diffusely thickened. The frothy secretions within the left lower lobe bronchi could be a manifestation of bronchitis or, perhaps, recent aspiration. There are mild secretions along the wall of the right lower lobe bronchus. Multiple small nodules are present in both lungs, largest measuring up to 0.5 cm, and these are likely infectious or inflammatory nodules. Based on Fleischner Society guidelines, chest CT follow up at 12 months is optional. If stable at 12 months, then no further follow up. QUALITY OF STUDY/CONTRAST BOLUS: Satisfactory. PULMONARY ARTERIES: The pulmonary arteries are normal in size. No embolic filling defects within the main, lobar or segmental vessels. OTHER CARDIOVASCULAR: The heart size is normal. No pericardial effusion. There is atherosclerotic calcification of the thoracic aorta without aneurysm. MEDIASTINUM/LOWER NECK: Thyroid gland and esophagus are grossly unremarkable. LYMPHATICS: No pathologic sized axillary, hilar or mediastinal lymph nodes. UPPER ABDOMEN: Unremarkable. OSSEOUS STRUCTURES: Chondrocalcinosis and multilevel degenerative arthropathy of the thoracic spine. Multiple thoracic vertebra exhibit chronic height loss. No acute fractures. Chondrocalcinosis and osteoarthritis of both glenohumeral and sternoclavicular joints (right worse than left). Old healed fracture of the left lateral eighth rib and subacute, incompletely healed fracture of left lateral seventh rib. CT/CT angio chest PE protocol IMPRESSION: * No evidence of pulmonary embolism. * Moderate pulmonary emphysema and imaging findings of bronchitis. Correlate for history of chronic obstructive pulmonary disease. * The multiple small bilateral pulmonary nodules are likely related to the airway inflammatory changes (likely infectious/inflammatory nodules).
--- NOTE | ~2023-08-10 | CT_ITS ---
EXAMINATION: CT SOFT TISSUE NECK WITH CONTRAST CLINICAL INFORMATION: C3-C4, C4-C5 surgeon R/O infectious COMPARISON: None. TECHNIQUE: Following the administration of 65 mL of Omnipaque 350 intravenous contrast, helical imaging was performed in the axial plane with generation of coronal and sagittal reformatted images. This CT examination was performed using dose optimization techniques as appropriate, variously including the following: *Automated exposure control. *Adjustment of mA and/or kV according to patient size (this includes techniques or standardized protocols for targeted exams where dose is matched to indication/reason for exam; i.e. extremities or head). *Use of iterative reconstruction technique. DLP: 654 mGy-cm. FINDINGS: Postsurgical changes from recent C3-C4 and C4-C5 ACDF. No evidence of hardware failure or complication. No osseous erosive changes. Expected prevertebral soft tissue swelling and edema spanning C2-C6. No discrete rim-enhancing fluid collection to suggest abscess is identified. Trace soft tissue emphysema along the right anterior neck is identified. Nasopharynx/skull base: The fat planes of the skull base and soft tissues of the nasopharynx are unremarkable. The paranasal sinuses and mastoid air cells are well aerated. The temporomandibular joints are normal. Suprahyoid neck: The oropharynx, oral cavity, and bilateral salivary gland tissues are unremarkable. Infrahyoid neck: The hypopharynx and larynx are unremarkable. No aerodigestive tract mass. Thyroid: The thyroid gland is normal. Lymph nodes: There is no cervical chain lymphadenopathy. Lung apices: Please refer to report from same-day CT of the chest performed concurrently for full description of findings in the thorax. There is centrilobular emphysema the lung apices. Vascular structures: No hemodynamically significant stenosis, dissection, or occlusion. Osseous structures: The osseous structures are intact without suspicious focal lesion. Multilevel cervical spondylosis. Other: The imaged portions of the brain parenchyma are unremarkable. CT/CT soft tissue neck w IV con IMPRESSION: Postsurgical changes from recent C3-C4 and C4-C5 ACDF without evidence of hardware complication. Expected postoperative prevertebral edema without discrete rim-enhancing fluid collection to suggest abscess. Superimposed infection is not entirely excluded on the basis of imaging and should be correlated clinically.
--- NOTE | ~2023-08-10 | CT_ITS ---
EXAMINATION: CT ABDOMEN AND PELVIS WITH CONTRAST CLINICAL INFORMATION: Diffuse abdominal pain. COMPARISON: None available. TECHNIQUE: Multidetector volumetric images were obtained from the superior aspect of the liver through the pubic symphysis following administration 85 mL of Omnipaque 350 intravenous contrast. Sagittal and coronal reformatted images were obtained on the technologist's workstation. Oral contrast: No This CT examination was performed using dose optimization techniques as appropriate, variously including the following: *Automated exposure control *Adjustment of mA and/or kV according to patient size (this includes techniques or standardized protocols for targeted exams where dose is matched to indication/reason for exam; i.e. extremities or head) *Use of iterative reconstruction technique DLP: 654 mGy-cm FINDINGS: LUNG BASES: There is mild to moderate bibasilar dependent atelectasis. LIVER, GALLBLADDER, AND BILIARY TREE: The liver is normal in size, shape, and attenuation. No focal hepatic lesion or biliary ductal dilatation is present. Tiny layering gallstones are suspected, without gallbladder wall thickening, or obvious pericholecystic inflammatory changes. PANCREAS: Unremarkable. SPLEEN: Unremarkable. ADRENAL GLANDS: Unremarkable. KIDNEYS AND URETERS: The kidneys are normal in size, shape, and attenuation. At the upper pole of the right kidney (35:226), a 2 mm nonobstructing calculus is seen. At the interpolar right kidney (35:241), a 2 mm nonobstructing abscess is seen. At the lower pole of the right kidney (35:294), a 4 mm nonobstructing calculus is seen. At the upper pole of the left kidney (35:230), a 3 mm nonobstructing calculus is again. At the interpolar left kidney (35:303 and 316), 4 mm and 2 mm nonobstructing calculi are seen. At the lower pole of the left kidney (35:331 and 341), there are 9 mm and 8 mm nonobstructing calculi. No perinephric stranding. BLADDER: Unremarkable. GASTROINTESTINAL TRACT: The small and large bowel are unremarkable. The appendix is unremarkable. ABDOMINAL WALL: No significant hernia is appreciated. LYMPH NODES: Normal. VASCULAR: There is moderate aortoiliac atherosclerotic calcification. No abdominal aortic aneurysm or dissection is seen. PELVIC VISCERA: The prostate and seminal vesicles are unremarkable. OSSEOUS STRUCTURES: There is multi-level marked thoracolumbar degenerative disc disease and spondylosis. There is multi-level lumbar facet arthropathy. There are degenerative changes of the hips. No acute or aggressive osseous finding is noted. CT/CT abdomen pelvis w IV con IMPRESSION: 1. There are multiple nonobstructing bilateral renal calculi, as detailed. No obstructive uropathy or urinary lesion is noted. 2. There is no bowel obstruction, free intraperitoneal air or abscess. No appendicitis or diverticulitis is seen. 3. Tiny layering gallstones are suspected, which can be more fully evaluated with dedicated abdominal ultrasound, if clinically indicated. 4. There are marked degenerative changes of the spine. No aggressive osseous lesion is seen. Fleischner guidelines were followed.
[2023-08-10 14:55] VITALS: BP 140/79; PULSE 82; O2SAT 97
[2023-08-10 15:17] VITALS: BP 142/80; PULSE 75; RESP 18; TEMP 37.1; O2SAT 89; BMI 25.1
[2023-08-10 15:42] LABS: MANUAL DIFF FLAG NO
[2023-08-10 15:49] LABS: Basophils Absolute Auto 0.1 X10*3/uL (0.0-0.2); Basophils Percent Auto 0.3 % (0-2); Eosinophils Percent Auto 0.1 % (0-4); Hematocrit 29.8 % (42.0-52.0); Hemoglobin 9.5 g/dl (14.0-18.0); Imm Gran Pct Auto 0.7 % (0.0-0.4); Lymphocytes Absolute Auto 1.2 X10*3/uL (1.2-4.9); Lymphocytes Percent Auto 8.4 % (20-40); Mean Corpuscular HGB Conc 31.9 g/dl (31.0-36.0); Mean Corpuscular Hemoglobin 30.4 pg (27.0-33.0); Mean Corpuscular Volume 95.5 fL (80.0-98.0); Mean Platelet Volume 8.8 fL (9.4-12.4); Monocytes Absolute Auto 1.2 X10*3/uL (0.1-1.2); NRBC Pct Auto 0.3 /100WBC (0.0-0.2); Neutrophils Absolute Auto 12.1 x10*3/uL (2.0-8.3); Neutrophils Percent Auto 82.5 % (45-73); Platelet Count 527 X10*3/uL (160-400); Red Blood Count 3.12 X10*6/uL (4.60-5.80); White Blood Count 14.6 X10*3/uL (4.8-10.8)
[2023-08-10 15:57] LABS: Alanine Aminotransferase 9 U/L (0-40); Albumin Level 3.3 g/dL (3.5-5.0); Alkaline Phosphatase 106 U/L (39-117); Anion Gap 13 (12-20); Aspartate Amino Transferase 18 U/L (5-37); Bilirubin Total 0.1 mg/dL (0.0-1.0); Blood Urea Nitrogen 9 mg/dL (9-16); Calcium 9.2 mg/dL (8.4-10.2); Carbon Dioxide 26 mmol/L (22-29); Chloride 106 mmol/L (96-108); Creatinine Clr Calc Pharmacy 112.6; Estimated Glomerular Filt Rate > 60; Glucose Random 99 mg/dL (60-115); Sodium 141 mmol/L (135-145); Total Protein 6.1 g/dL (6.5-8.0)
--- NOTE | 2023-08-10 16:03 | ED_ITS ---
HPI - Altered Mental Status General Chief Complaint: Altered Mental Status Stated Complaint: NECK PAIN Time Seen by Provider: 08/10/23 15:48 Source: patient, EMS and RN notes reviewed Mode of arrival: EMS Limitations: no limitations History of Present Illness HPI narrative: 67-year-old male with a history of GERD, AAA, depression, opiate use disorder, chronic pain syndrome, hard of hearing, on 08/08/2023 (2 days prior) patient had C3-C4, C4-C5 Anterior discectomy, arthrodesis and implantation cage ; C3-C5 anterior instrumentation ; local autograft done at this facility who was sent to the emergency department by his sister for evaluation of increased confusion and vomiting. The patient is very hard of hearing but does answer questions if you talk loudly. He was oriented 2 to person, he knew that he was in a hospital, he was able to tell me his age but not the month. He told me that he is vomiting but can not tell me any more details about why he is here and does appear to be confused. Initial vital signs revealed a blood pressure of 142/80, temperature of 98.7 degrees, O2 saturation of 89% on room air. Related Data Home Medications ?Medication ?Instructions ?Recorded ?Confirmed buprenorphine 12 mg-naloxone 3 mg 8 mg sublingual BID 03/28/21 07/25/23 sublingual film (Suboxone) naproxen 500 mg tablet 500 mg PO TID 03/28/21 07/25/23 acamprosate 333 mg tablet,delayed 666 mg PO TID 07/25/23 07/25/23 release bupropion HCl 100 mg tablet,12 hr 100 mg PO BID 07/25/23 07/25/23 sustained-release capsaicin 0.075 % topical cream 1 appl topical BID 07/25/23 07/25/23 gabapentin 100 mg capsule 200 mg PO BID 07/25/23 07/25/23 ibuprofen 200 mg tablet 400 mg PO Q8H PRN Pain 07/25/23 07/25/23 omeprazole 20 mg tablet,delayed 60 mg PO DAILY@1700 07/25/23 07/25/23 release Previous Rx's ?Medication ?Instructions ?Recorded acetaminophen 500 mg tablet 1,000 mg (2 x 500 mg) PO TID PRN 08/08/23 moderate pain (scale score 5-6) #42 tabs baclofen 10 mg tablet 10 mg PO TID Muscle spasms #30 tabs 08/08/23 Allergies Allergy/AdvReac Type Severity Reaction Status Date / Time No Known Allergies Allergy Verified 08/10/23 15:22 Review of Systems 2 Review of Systems: Yes Unobtainable due to mental status [facility] Past Medical History [facility] Narrative: Social history: Patient reports he lives at home with his sister. Patient does smoke cigarettes. He denies drug and alcohol use. Medical History Back pain Arthritis GERD (gastroesophageal reflux disease) Numbness AAA (abdominal aortic aneurysm) History of kidney stones C6 radiculopathy Hard of hearing Central stenosis of spinal canal Knee osteoarthritis Trauma in childhood Erectile dysfunction Anemia Adrenal adenoma Tobacco abuse Pulmonary nodules Depression History of ETOH abuse Osteoarthritis of knee, unspecified Opioid abuse with other opioid-induced disorder Chronic pain syndrome Disc degeneration, lumbar Spondylosis of lumbar spine Surgical History History of extraction of renal calculus H/O colonoscopy H/O inguinal hernia repair Social History Social History Are you a primary daycare director to a significant other at home: No Do you presently have visiting nurse or other home services: No Alcohol intake: former Comment: pressure Patient Tobacco Use Status: Current everyday Tobacco user Tobacco use type: Cigarette Cigarettes Per Day: 4 Advance Directives: No Advance Directives Information Provided: No Do you have a plan to hurt others: No Plan Physical Exam ED Vital Signs: Vital Signs - 24 hr 08/10/23 15:17 08/10/23 19:02 08/10/23 19:27 Temperature 98.7 F 98.3 F 97.9 F Pulse Rate 75 75 68 Respiratory Rate 18 17 16 Blood Pressure 142/80 H 139/78 127/66 Pulse Oximetry 89 L 94 96 Oxygen Delivery Method Room Air Room Air Room Air 08/10/23 21:41 Temperature 98.8 F Pulse Rate 79 Respiratory Rate 16 Blood Pressure 140/74 H Pulse Oximetry 95 Oxygen Delivery Method Room Air BMI result Body Mass Index 25.1 Vital signs did reveal low O2 saturation of 89% Exam: General: Awake, alert in no distress, oriented to person and place, was able to tell me his age but could not identify the month, he does appear confused and lacks insight as to why he is here in the emergency street department dispatcher: Normocephalic, atraumatic EENT: PERRL, Lids normal, sclera normal, conjunctiva normal, nose normal , ears normal, throat without erythema or exudates Neck: Patient does have a dressing on his right anterior neck . I took the dressing down the patient has a healing wound with Steri-Strips with no evidence of infection Lung: breath sounds symmetric, no wheezing, rales or rhonchi Chest: symmetric movement, nontender Heart: regular rate and rhythm, normal S1, S2 no murmurs or rubs Abdomen: soft, moderate diffuse abdominal tenderness increased in the left lower quadrant compared to the right Extremities: no deformities, moves all extremities symmetrically Neuro: Awake, alert, oriented to person , place, age but not month and lacks insight as to why he is here normal speech, cranial nerves intact, moves all extremities symmetrically Psych: Pleasant, cooperative Medications Administered Discontinued Medications Generic Name Dose Route Start Last Admin Trade Name Ernst PRN Reason Stop Dose Admin Sodium Chloride 1,000 mls @ 999 mls/hr 08/10/23 16:03 08/10/23 18:09 Ns IV 08/10/23 17:03 Infused .Q1H1M STA Infusion Iohexol 100 ml 08/10/23 17:38 08/10/23 17:38 Iohexol 350 Mg/Ml 100 Ml Infus..Btl IV 08/10/23 17:39 85 ml ONCE ONE Administration Ondansetron HCl 4 mg 08/10/23 16:03 08/10/23 16:24 Ondansetron Hcl 4 Mg/2 Ml Vial IVPUSH 08/10/23 16:04 4 mg ONCE ONE Administration Medical Decision Making Medical Decision Making MDM Narrative: 67-year-old male with a history of GERD, AAA, depression, opiate use disorder, chronic pain syndrome, hard of hearing, on 08/08/2023 (2 days prior) patient had C3-C4, C4-C5 Anterior discectomy, arthrodesis and implantation cage ; C3-C5 anterior instrumentation ; local autograft done at this facility who was sent to the emergency department by his sister for evaluation of increased confusion and vomiting. The patient is very hard of hearing but does answer questions if you talk loudly. He was oriented 2 to person, he knew that he was in a hospital, he was able to tell me his age but not the month. Vital signs did reveal low O2 saturation of 89% on room air, surgical neck wound was not appear infected, patient had moderate diffuse abdominal tenderness with increased tenderness in the left lower quadrant area, neurologic exam was nonfocal. Differential diagnosis: ?Includes but is not limited to stroke, cerebral bleed, encephalopathy, polysubstance use, alcohol intoxication, pulmonary embolism, diverticulitis, pancreatitis Following evaluation was ordered: CBC, CMP, ammonia, lactic acid, lipase, ethanol, drug screen urine, blood cultures x2, CT head without contrast, CT neck, chest, abdomen, pelvis with IV contrast Patient was initially treated with the following: Oxygen 2 L via nasal cannula Course: 21:41 My independent interpretation patient's laboratory evaluation as follows: Elevated WBC 91755. Anemia with an H&H of 9.5 and 28. Elevated platelet count 527,000. CMP was normal. Lactic acid was normal. Ammonia was normal. Urinalysis was negative. Urine tox screen was positive for buprenorphine- patient is on Suboxone. CT scans of the patient's head, neck, chest, abdomen pelvis were unremarkable did not reveal a clear cause for symptoms. The patient's sister is here in the emergency department she states that he seems to be better but still has some slight confusion. At this time I do not have a clear etiology for his symptoms, I do not think that the patient has had a stroke. The patient wants to go home and he will be discharged home in the care of his sister . I told his sister that his symptoms get worse they should bring him back to the emergency department for re-evaluation. Admission/Observation Consideration of admission/observation: Escalation of care including admission/observation considered Lab Data [facility] Lab Attestation statement: I reviewed the patient's lab results. 08/10/23 15:33 08/10/23 15:33 Labs: Lab Results 08/10/23 08/10/23 08/10/23 Range/Units 15:33 16:16 16:36 WBC 14.6 H (4.8-10.8) X10*3/uL RBC 3.12 L (4.60-5.80) X10*6/uL Hgb 9.5 L (14.0-18.0) g/dl Hct 29.8 L (42.0-52.0) % MCV 95.5 (80.0-98.0) fL MCH 30.4 (27.0-33.0) pg MCHC 31.9 (31.0-36.0) g/dl RDW 17.0 H (11.0-16.0) % Plt Count 527 H (160-400) X10*3/uL MPV 8.8 L (9.4-12.4) fL Immature Gran % (Auto) 0.7 H (0.0-0.4) % Neut % (Auto) 82.5 H (45-73) % Lymph % (Auto) 8.4 L (20-40) % [place] % (Auto) 8.0 (2-11) % Eos % (Auto) 0.1 (0-4) % Baso % (Auto) 0.3 (0-2) % Lymph # (Auto) 1.2 (1.2-4.9) X10*3/uL [place] # (Auto) 1.2 (0.1-1.2) X10*3/uL Eos # (Auto) 0.0 (0.0-0.4) X10*3/uL Baso # (Auto) 0.1 (0.0-0.2) X10*3/uL Abs Immat Gran (auto) 0.10 H (0.00-0.03) X10*3/uL Absolute Neuts (auto) 12.1 H (2.0-8.3) x10*3/uL Absolute Nucleated RBC 0.040 H (0.0-0.012) X10*3/uL Nucleated RBC % (auto) 0.3 H (0.0-0.2) /100WBC Sodium 141 (135-145) mmol/L Potassium 4.0 (3.3-5.1) mmol/L Chloride 106 (96-108) mmol/L Carbon Dioxide 26 (22-29) mmol/L Anion Gap 13 (12-20) BUN 9 (9-16) mg/dL Creatinine 0.59 (0.5-1.4) mg/dL Estim Creat Clear Calc 112.6 Estimated GFR > 60 Random Glucose 99 (60-115) mg/dL Lactic Acid (0.5-2.0) mmol/L Calcium 9.2 (8.4-10.2) mg/dL Total Bilirubin 0.1 (0.0-1.0) mg/dL AST 18 (5-37) U/L ALT 9 (0-40) U/L Alkaline Phosphatase 106 (39-117) U/L Ammonia (13-55) umol/L Total Protein 6.1 L (6.5-8.0) g/dL Albumin 3.3 L (3.5-5.0) g/dL Lipase 20 (8-78) U/L Urine Color Yellow Urine Appearance Cloudy Urine pH >= 9.0 (5.0-9.0) Ur Specific [place] 1.015 (1.005-1.025) Urine Protein Negative (Neg-Trace) mg/dL Urine Glucose (UA) Negative (Negative) mg/dL Urine Ketones Negative (Negative) mg/dL Urine Blood Negative (Negative) Urine Nitrite Negative (Negative) Ur Leukocyte Esterase Negative (Negative) Urine Opiates Screen Not Detected (Not Detect) Ur Buprenorphine Scrn Positive H (Not Detect) ng/mL Ur Oxycodone Screen Not Detected (Not Detect) ng/mL Urine Methadone Screen Not Detected (Not Detect) ng/mL Urine Fentanyl Screen Not Detected (Not Detect) Ur Barbiturates Screen Not Detected (Not Detect) Ur Phencyclidine Scrn Not Detected (Not Detect) Ur Amphetamines Screen Not Detected (Not Detect) U Benzodiazepines Scrn Not Detected (Not Detect) Urine Cocaine Screen Not Detected (Not Detect) U Marijuana (THC) Screen Not Detected (Not Detect) Ethyl Alcohol < 10 mg/dL 08/10/23 Range/Units 18:05 WBC (4.8-10.8) X10*3/uL RBC (4.60-5.80) X10*6/uL Hgb (14.0-18.0) g/dl Hct (42.0-52.0) % MCV (80.0-98.0) fL MCH (27.0-33.0) pg MCHC (31.0-36.0) g/dl RDW (11.0-16.0) % Plt Count (160-400) X10*3/uL MPV (9.4-12.4) fL Immature Gran % (Auto) (0.0-0.4) % Neut % (Auto) (45-73) % Lymph % (Auto) (20-40) % [place] % (Auto) (2-11) % Eos % (Auto) (0-4) % Baso % (Auto) (0-2) % Lymph # (Auto) (1.2-4.9) X10*3/uL [place] # (Auto) (0.1-1.2) X10*3/uL Eos # (Auto) (0.0-0.4) X10*3/uL Baso # (Auto) (0.0-0.2) X10*3/uL Abs Immat Gran (auto) (0.00-0.03) X10*3/uL Absolute Neuts (auto) (2.0-8.3) x10*3/uL Absolute Nucleated RBC (0.0-0.012) X10*3/uL Nucleated RBC % (auto) (0.0-0.2) /100WBC Sodium (135-145) mmol/L Potassium (3.3-5.1) mmol/L Chloride (96-108) mmol/L Carbon Dioxide (22-29) mmol/L Anion Gap (12-20) BUN (9-16) mg/dL Creatinine (0.5-1.4) mg/dL Estim Creat Clear Calc Estimated GFR Random Glucose (60-115) mg/dL Lactic Acid 1.0 (0.5-2.0) mmol/L Calcium (8.4-10.2) mg/dL Total Bilirubin (0.0-1.0) mg/dL AST (5-37) U/L ALT (0-40) U/L Alkaline Phosphatase (39-117) U/L Ammonia 37 (13-55) umol/L Total Protein (6.5-8.0) g/dL Albumin (3.5-5.0) g/dL Lipase (8-78) U/L Urine Color Urine Appearance Urine pH (5.0-9.0) Ur Specific [place] (1.005-1.025) Urine Protein (Neg-Trace) mg/dL Urine Glucose (UA) (Negative) mg/dL Urine Ketones (Negative) mg/dL Urine Blood (Negative) Urine Nitrite (Negative) Ur Leukocyte Esterase (Negative) Urine Opiates Screen (Not Detect) Ur Buprenorphine Scrn (Not Detect) ng/mL Ur Oxycodone Screen (Not Detect) ng/mL Urine Methadone Screen (Not Detect) ng/mL Urine Fentanyl Screen (Not Detect) Ur Barbiturates Screen (Not Detect) Ur Phencyclidine Scrn (Not Detect) Ur Amphetamines Screen (Not Detect) U Benzodiazepines Scrn (Not Detect) Urine Cocaine Screen (Not Detect) U Marijuana (THC) Screen (Not Detect) Ethyl Alcohol mg/dL Independent Interpretation I performed an independent interpretation of an: EKG Interpretation: My independent interpretation patient's 12 EKG done at 15:39 hours is as follows: Normal sinus rhythm rate of 86, normal VT interval, QRS duration QTC interval, no ST segment elevation, no ST segment depression, no PACs, no PVCs Radiology Impression Discussion of test interpretation with radiology: I have reviewed the radiologist's reading. Radiologist Impression: CT soft tissue neck w IV con IMPRESSION: Postsurgical changes from recent C3-C4 and C4-C5 ACDF without evidence of hardware complication. Expected postoperative prevertebral edema without discrete rim-enhancing fluid collection to suggest abscess. Superimposed infection is not entirely excluded on the basis of imaging and should be correlated clinically. Dictated By: Sung Antonio CT head/brain wo IV con IMPRESSION: No acute intracranial abnormality including hemorrhage, mass effect, hydrocephalus, or acute territorial edematous infarction. Dictated By: Sung Antonio CT angio chest PE protocol IMPRESSION: * No evidence of pulmonary embolism. * Moderate pulmonary emphysema and imaging findings of bronchitis. Correlate for history of chronic obstructive pulmonary disease. * The multiple small bilateral pulmonary nodules are likely related to the airway inflammatory changes (likely infectious/inflammatory nodules). Dictated By: Reyes Villarreal MD CT abdomen pelvis w IV con IMPRESSION: 1. There are multiple nonobstructing bilateral renal calculi, as detailed. No obstructive uropathy or urinary lesion is noted. 2. There is no bowel obstruction, free intraperitoneal air or abscess. No appendicitis or diverticulitis is seen. 3. Tiny layering gallstones are suspected, which can be more fully evaluated with dedicated abdominal ultrasound, if clinically indicated. 4. There are marked degenerative changes of the spine. No aggressive osseous lesion is seen. Fleischner guidelines were followed. Dictated By: Edvin Blue MD Independent Historian Clinical information obtained from an independent historian. History obtained from or confirmed by: Other (Sister) External Record Review External record reviewed: Inpatient record Chronic Conditions Patient?s care impacted by: Other (Opiate use disorder-remission) Discharge Plan Discharge Clinical Impression: Acute alteration in mental status Patient Disposition: Home, Self-Care Additional Instructions: Your blood work revealed an elevated white blood cell count and anemia which I do not think is causing your symptoms today. The rest of your blood work was normal. You got a CT scan of your head and neck which did not reveal any abnormalities which is reassuring. You also got a CT scan of your chest, abdomen pelvis with no significant abnormalities to explain your symptoms. At this time, I do not have a clear cause for your change in mental status however you do seem to be improving. Continue taking your medications as prescribed by your providers Follow-up with your doctor in 2 days. Please return to the emergency department if your symptoms get worse or if you develop any symptoms that are concerning to you. Prescriptions: No Action bupropion HCl 100 mg tablet sustained-release 12 hr 100 mg PO BID acamprosate 333 mg tablet,delayed release (DR/EC) 666 mg PO TID capsaicin 0.075 % Cream 1 appl TOPICAL BID Rx Instructions: do not wash area for at least 30 min after application ibuprofen 200 mg Tablet 400 mg PO Q8H PRN (Reason: Pain) gabapentin 100 mg Capsule 200 mg PO BID omeprazole 20 mg Tablet,Delayed Release (Dr/Ec) 60 mg PO DAILY@1700 baclofen 10 mg tablet 10 mg PO TID Qty: 30 0RF acetaminophen 500 mg tablet 1,000 mg PO TID PRN (Reason: moderate pain (scale score 5-6)) Qty: 42 0RF buprenorphine-naloxone [Suboxone] 12-3 mg film 8 mg sublingual BID naproxen 500 mg tablet 500 mg PO TID Print Language: B[place]udian
[2023-08-10] MEDS: 0.9 % Sodium Chloride 1,000 ML 999 ML IV (16:24)
[2023-08-10] MEDS: ondansetron HCL 4 MG/2 ML VIAL IVPUSH (16:24)
--- NOTE | 2023-08-10 16:26 | PC.NURSE ---
coming from home for increased ams and vomiting. also reporting abdominal pain. iv established via EMS, labs obtained and sent. able to provide urine sample. provider assessed incision site from previous spinal surgery.
[2023-08-10 16:35] LABS: Color Urine Yellow; Glucose Urine UA Negative (Negative); Leukocyte Esterase Urine Negative (Negative); Nitrite Urine Negative (Negative); PH >= 9.0 (5.0-9.0); Specific Gravity - Urine 1.015 (1.005-1.025); Urine Blood Negative (Negative); Urine Ketones Negative (Negative); Urine Protein Negative (Neg-Trace)
[2023-08-10 16:45] LABS: Appearance Urine Cloudy
[2023-08-10] MEDS: iohexoL 350 MG/ML 100 ML INFUS..BTL IV (17:38)
[2023-08-10 17:49] LABS: Amphetamine Screen Urine Not Detected (Not Detect); Barbiturates, Urine Not Detected (Not Detect); Benzodiazepines Screen Urine Not Detected (Not Detect); Buprenorphine Scr Positive (Not Detect); Cannabinoid Screen Urine Not Detected (Not Detect); Cocaine Screen Urine Not Detected (Not Detect); Ethanol < 10 mg/dL; Fentanyl, urine Not Detected (Not Detect); Methadone Screen, Urine Not Detected (Not Detect); Opiate Screen Urine Not Detected (Not Detect); Oxycodone Screen Urine Not Detected (Not Detect); Phencyclidine Screen Urine Not Detected (Not Detect)
[2023-08-10 17:50] LABS: Lipase 20 U/L (8-78)
[2023-08-10 18:20] LABS: Ammonia 37 umol/L (13-55)
--- NOTE | 2023-08-10 18:24 | PC.NURSE ---
continues to rest quietly in room w/ no obvious signs or symptoms of distress noted. labs obtained and sent. awaiting results from CT scan. family at bedside.
[2023-08-10 19:02] VITALS: BP 139/78; PULSE 75; RESP 17; TEMP 36.8; O2SAT 94
[2023-08-10 19:27] VITALS: BP 127/66; PULSE 68; RESP 16; TEMP 36.6; O2SAT 96
--- NOTE | 2023-08-10 19:29 | MHC.EDTECH ---
This tech took over care of patient at 1900,hourly rounds and vitals completed,patient urinated 300MLS of yellow urine in urinal,family at bedside and call sommers in reach
[2023-08-10 21:41] VITALS: BP 140/74; PULSE 79; RESP 16; TEMP 37.1; O2SAT 95
--- NOTE | 2023-08-10 21:44 | MHC.EDTECH ---
Hourly rounds and vitals completed,patient is resting at this time call sommers in reach
[2023-08-10 22:25] VITALS: BP 140/74; PULSE 79; RESP 16; TEMP 37.1; O2SAT 95
== END 2023-08-10 22:26 | disposition home or self-care (01) ==
PROVIDERS: Emergency Provider Emergency Medicine Emergency Medical Services
DX: R41.82 Altered mental status, unspecified (principal); G89.4 Chronic pain syndrome; Z79.891 Long term (current) use of opiate analgesic; Z98.890 Other specified postprocedural states
CPT/HCPCS: 36415; 70450; 70491; 71275; 74177; 80053; 80307; 81003; 82140; 83605; 83690; 85025; 87040; 93005; 96361; 96374; 99284; 99285; J2405; Q9967

== ENCOUNTER → 2023-08-10 15:39 | Outpatient (BNV) | payer MEDICAID, SELFPAY | PROVIDERS: Emergency Provider Emergency Medicine Emergency Medical Services; Visit Provider Internal Medicine | DX: R94.31 Abnormal electrocardiogram [ECG] [EKG] (principal) | CPT/HCPCS: 93010 ==

== ENCOUNTER 2023-08-21 09:44 | Outpatient (REF) | payer MEDICAID, SELFPAY ==
--- NOTE | 2023-08-21 10:09 | MHC.AU.HA3 ---
Hearing Instrument Follow-Up- Binaural Date of Visit: 08/21/23 Right Ear: Make, Model, Color, Serial Number: Phonak Virto P 70-312 [place] SN [id number] Asphalt Heater Operator Repair Warranty: 01/06/2026 Asphalt Heater Operator Loss and Damage Warranty: 01/06/2026 [facility] Service Plan: 10/19/2023 Battery Size: 312 Critical Care Technician/Slim Tube: Power Earmold/Dome/CShell/SlimTip: Type of Wax Guard: Cerustop Dispensed By: Date of Fittin10/18/2022 Left Ear: Make, Model, Color, Serial Number: Phonak Virto P 70-312 Deltana SN [id number] Asphalt Heater Operator Repair Warranty: 01/06/2026 Asphalt Heater Operator Loss and Damage Warranty: 01/06/2026 [facility] Service Plan: Battery Size: 312 Critical Care Technician/Slim Tube: Power Earmold/Dome/CShell/SlimTip: Type of Wax Guard: Cerustop Dispensed By: Date of Fittin10/18/2022 Follow-Up Summary: Nba is here today with his left wax guard missing from the hearing aid, concerned it is in his ear. Otoscopy clear. Cleaned and checked aids. Gasket is missing left, cannot hold wax guard, sending to [facility] for repair. Noticed right had been glued, Nba reports it cracked and he was able to fix it himself. Suggested sending right aid to [facility] when left is back to ensure the shell is stable while it is still under warranty. Recommendations: Recommendations: Patient will be contacted when materials have arrived. Diagnosis Code(s): Primary Diagnosis: H90.3 Bilateral Sensorineural Hearing Loss Signature: Provider: Kwame Celis, [facility]
== END 2023-08-21 09:45 | disposition home or self-care (01) ==
LOC: HO.HAP 09:44
PROVIDERS: Visit Provider Family Medicine
DX: Z13.89 Encounter for screening for other disorder (principal)

== ENCOUNTER 2023-08-29 14:34 | Outpatient (AMB) | payer MEDICAID, SELFPAY ==
--- NOTE | 2023-08-29 14:41 | A.SPINEOV_ITS ---
Intake Visit Reasons: 1st post op Intake Note: Mr. Pichardo is here today for his 1st post-op appointment. 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 He reports having quite a difficult postoperative healing course. Apparently directly after surgery he had an episode of delirium when he was discharged home where he was unable to ascertain where he was, or what his present life circumstances were. He ended up calling emergency services who transported him to the hospital. He states he was unable to adequately oriented himself for about 4 hours in the emergency department until he realized what was going on. Thankfully, he has not had any repeat incidents since then. He reports that overall he feels better than he did preoperatively, and that much of his right-sided symptoms have resolved. Unfortunately he still has quite a bit of pain in his left lower extremity, and express a desire to schedule surgery for his lumbar spine today. He was informed that we need to give him some time to heal from his 2 level ACDF before discussing lumbar spine surgery. No new neurological deficits. No youssef's. Patient is able to ambulate well with assistance of a cane, he rises from a seated position without difficulty. Incision site is closed, well healing, with no signs of drainage. I will have the patient follow up with BAIRON Merino as he did his initial evaluation and has a better idea of what is going on with Nba. We will follow-up with the patient in 6 weeks for his 2nd postoperative visit. At that time we will get x-rays to review with the patient. Lv Aviles MD,PhD [facility] Coding Level of Care Code Global (37389) Diagnoses S/P spinal surgery Z98.890
== END 2023-08-29 15:03 | disposition home or self-care (01) ==
LOC: HO.HNS 14:39
PROVIDERS: Visit Provider Physician Assistant
DX: Z98.890 Other specified postprocedural states (principal)
CPT/HCPCS: 99024

== ENCOUNTER → 2023-08-29 14:39 | Outpatient (BNVA) | payer MEDICAID, SELFPAY | PROVIDERS: Visit Provider Physician Assistant | DX: Z98.890 Other specified postprocedural states (principal) | CPT/HCPCS: 99212 ==

== ENCOUNTER 2023-09-04 09:15 | Outpatient (REF) | payer MEDICAID, SELFPAY | END 2023-09-04 09:16 | disposition home or self-care (01) | LOC: HO.HAP 09:15 | PROVIDERS: Visit Provider Family Medicine | DX: Z13.89 Encounter for screening for other disorder (principal) ==

== ENCOUNTER 2023-09-19 10:29 | Outpatient (REF) | payer MEDICAID, SELFPAY | END 2023-09-19 10:30 | disposition home or self-care (01) | LOC: HO.HAP 10:29 | PROVIDERS: Visit Provider Family Medicine | DX: Z13.89 Encounter for screening for other disorder (principal) ==

== ENCOUNTER 2023-10-01 10:46 | Outpatient (REF) | payer MEDICAID, SELFPAY | END 2023-10-01 10:47 | disposition home or self-care (01) | LOC: HO.HAP 10:46 | PROVIDERS: Visit Provider Family Medicine | DX: Z13.89 Encounter for screening for other disorder (principal) ==

== ENCOUNTER 2023-10-08 11:07 | Outpatient (AMB) | payer MEDICAID, SELFPAY ==
--- NOTE | 2023-10-08 11:32 | HO.SPINEOV ---
Intake Visit Reasons: discuss lumbar sx Intake Note: Mr. 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 He said he is surprisingly impressed with the improvement in the feelings of numbness in his arms. He still has numbness of his left leg, and can not feel the bottom of his foot. What he comes back for today is the original reason that he was here to see us initially that is severe back pain which radiates down primarily his left leg into his hamstring with numbness of his left foot. He is known to have severe stenosis at L3-4 and moderate stenosis at L4-5. 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 That pain is also more on the left. I went back and looked at his imaging again, and there is definitely stenosis at L3-4 which is severe. There is a spondylolisthesis here as well. There is also disc collapse and moderate to severe stenosis at L4-5. I would like to send him for flexion-extension x-rays. I will need to review his films with Dr. Aviles in order to come up with a final plan for him. I suspect he will be looking at a 2 level fusion, as long as the x-rays do not show us anything that we are not expecting. We did briefly discuss risks, benefits and recovery of lumbar fusion. I will call him back once I have a final plan for surgery. Tom Aviles MD,PhD [facility] Orders: Orders XR cervical spine 4V Today M47.12 - Other spondylosis with myelopathy, cervical region, M47.22 - Other spondylosis with radiculopathy, cervical region XR lumbar spine 4V min Today M47.816 - Spondylosis without myelopathy or radiculopathy, lumbar region Coding Level of Care Code Global (60238) Diagnoses Cervical spondylosis with myelopathy and radiculopathy M47.12; M47.22 Spondylosis of lumbar spine M47.816
== END 2023-10-08 13:20 | disposition home or self-care (01) ==
PROVIDERS: Visit Provider Physician Assistant
DX: M47.12 Other spondylosis with myelopathy, cervical region (principal); M47.22 Other spondylosis with radiculopathy, cervical region; M47.816 Spondylosis without myelopathy or radiculopathy, lumbar region
CPT/HCPCS: 99024

== ENCOUNTER 2023-10-08 11:07 | Outpatient (REF) | payer MEDICAID, SELFPAY ==
--- NOTE | ~2023-10-08 | XR_ITS ---
EXAMINATION: XR LUMBOSACRAL SPINE WITH FLEXION AND EXTENSION CLINICAL INFORMATION: Spondylosis without myelopathy or radiculopathy, lumbar region COMPARISON: MRI lumbar spine 10/05/2022 TECHNIQUE: Standing AP and lateral neutral, lateral flexion and extension views were obtained. FINDINGS: There are mild nonrib-bearing lumbar-type vertebral bodies. No compression fracture. Multilevel endplate Schmorl's nodes present. There is multilevel degenerative disc disease and degenerative facet joint disease, most severe at L3-L4. There is grade 1 anterolisthesis of L3 with respect to L4. This is without significant change on flexion, however, slightly reduces on extension. Several calcifications are seen within the right and left lower quadrants. There are a few punctate calcifications projected over the right kidney. The left kidney is obscured by bowel gas. XR/XR lumbar spine 4V min IMPRESSION: 1. Multilevel degenerative disc disease and degenerative facet joint disease, most severe at L3-L4. 2. Grade 1 anterolisthesis of L3 with respect to L4, as discussed above.
--- NOTE | ~2023-10-08 | XR_ITS ---
EXAMINATION: XR CERVICAL SPINE CLINICAL INFORMATION: Other spondylosis with myelopathy, cervical region COMPARISON: None available. TECHNIQUE: 3 views of the cervical spine were obtained. FINDINGS: C7 is obscured by the soft tissues of the patient's shoulders on the lateral views. There is slight curve of the cervical spine on the AP view, convex left. Patient is status post anterior fusion with disc spacers at C3-C4 and C4-C5. Hardware is intact. There is slight motion and rotation on the neutral lateral view. There is anterior subluxation of C3 on C4 which reduces on flexion and extension. There is slight anterior subluxation of C3 C5 respect to C6 which slightly reduces on flexion and extension. No fracture. Prevertebral soft tissues are within normal limits. XR/XR cervical spine 4V IMPRESSION: 1. Anterior fusion at C3-C4 and C4-C5. Hardware is intact. 2. Anterior subluxation of C3 on C4 and C5 on C6, as described.
== END 2023-10-08 11:08 | disposition home or self-care (01) ==
LOC: HO.HOSX 11:07
PROVIDERS: Visit Provider Physician Assistant
DX: M47.12 Other spondylosis with myelopathy, cervical region (principal); M47.22 Other spondylosis with radiculopathy, cervical region; M47.816 Spondylosis without myelopathy or radiculopathy, lumbar region
CPT/HCPCS: 72050; 72110; 99212

== ENCOUNTER 2024-01-03 | Outpatient (REF) | payer MEDICAID, SELFPAY ==
[2024-01-03 10:02] VITALS: BP 127/64; PULSE 60; RESP 16; O2SAT 98; BMI 24.4
--- NOTE | 2024-01-03 10:24 | P.CONAN_ITS ---
<Statement entered by Denita Carr MD - 01/23/24 07:27> not my patient wrongly forwarded HPI - Anesthesia Eval Consult details Narrative: Per Spine surgeon, needs further w/u for low H&H 68yo M for L3-4,L4-5 Oblique Lumbar Interbody Fusion, 01/16/24 s/p ACDF 08/2023 ETT 7.5 - no issue with anesthesia, but patient returned to [facility] ED via ambulance 2 days later with alt mental status. 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 Suboxone daily 16mg. Will not take DOS per prescriber. Smoker: 1-2 cigs daily, using nicotine patch No AAA seen on 08/2023 US PREOP Labs done with clearance: Critically low Hgb 6.8. Per clearance note, restarted pt's oral Fe supplement. No transfusion because asymptomatic. Defers to surgeon for decision on delaying surgery. Per workload, Dr Fernandes's plans to proceed without delay. Notified neurosurg office team that patient will need repeat lab draw day before surgery to ensure patient safety. Case reviewed with Dr Carr. [facility] Active Problems Active Problems: All Active Problems S/P spinal surgery (Acute) Cervical spondylosis with myelopathy and radiculopathy (Acute) Left-sided weakness (Acute) Lumbar radiculopathy (Acute) History of opioid abuse (Acute) Osteoarthritis of left knee (Acute) Osteoarthritis of right knee (Acute) DVT (deep venous thrombosis) (Acute) Right knee pain (Acute) Osteoarthritis of knee, unspecified (Acute) Opioid abuse with other opioid-induced disorder (Acute) Chronic pain syndrome (Acute) Disc degeneration, lumbar (Acute) Spondylosis of lumbar spine (Acute) Past Medical History Medical History (Updated 01/03/24 @ 10:42 by Dahiana Griffin RN) Back pain Arthritis GERD (gastroesophageal reflux disease) Numbness AAA (abdominal aortic aneurysm) History of kidney stones C6 radiculopathy Hard of hearing Central stenosis of spinal canal Knee osteoarthritis Trauma in childhood Erectile dysfunction Anemia Adrenal adenoma Tobacco abuse Pulmonary nodules Depression History of ETOH abuse Osteoarthritis of knee, unspecified Opioid abuse with other opioid-induced disorder Chronic pain syndrome Disc degeneration, lumbar Spondylosis of lumbar spine Family History Family history of problems with anesthesia: No Surgical History Surgical History (Updated 01/02/24 @ 08:52 by Dahiana Griffin RN) Hx of fusion of cervical spine (08/08/23) History of extraction of renal calculus H/O colonoscopy H/O inguinal hernia repair History of Problems with Anesthesia: No Social History Social History (Updated 01/03/24 @ 10:30 by Dahiana Griffin RN) Household Members: None Housing: House Housing Other:: 2 family house Are you a primary personal care assistant to a significant other at home: No Do you presently have visiting nurse or other home services: No (nephew helps with care, lives in 2 family house with Nba) Alcohol intake: former Comment: pressure Patient Tobacco Use Status: Current everyday Tobacco user Tobacco use type: Cigarette Cigarettes Per Day: 2 Smoked in Last 30 Days: Yes Have you been hit, kicked, punched, or otherwise hurt by someone within the past year? If so, by whom?: No Spiritual Healthcare Practices: none Mormonism Healthcare Practices: none Cultural Healthcare Practices: none Are you DNR?: No Advance Directives: No Advance Directives Information Provided: Yes Advance Directives on File: No Recently lost weight without trying: No Nutrition Risks: Difficulty chewing Poor oral hygiene: No (teeth, full upper denture) Meds Allergies Allergy/AdvReac Type Severity Reaction Status Date / Time No Known Allergies Allergy Verified 08/10/23 15:22 Home Medications ?Medication ?Instructions ?Recorded ?Confirmed ?Last Taken ?Type buprenorphine 12 mg-naloxone 3 mg 8 mg sublingual BID 03/28/21 01/03/24 08/07/23 History sublingual film (Suboxone) acamprosate 333 mg tablet,delayed 666 mg PO TID 07/25/23 01/03/24 08/07/23 History release bupropion HCl 100 mg tablet,12 hr 100 mg PO BID 07/25/23 01/03/24 08/07/23 History sustained-release gabapentin 100 mg capsule 200 mg PO BID 07/25/23 01/03/24 08/07/23 History nicotine (polacrilex) 4 mg buccal 4 mg buccal Q6H 01/03/24 01/03/24 Unknown History lozenge nicotine 7 mg/24 hr daily 1 patch transdermal Q24H 01/03/24 01/03/24 Unknown History transdermal patch omeprazole 20 mg capsule,delayed 60 mg PO .QEVENING 01/03/24 01/03/24 Unknown History release Exam Height,Weight and Vital Signs: Height 5 ft 6.54 in Weight 69.8 kg Last Vital Signs Pulse 60 01/03/24 10:02 Resp 16 01/03/24 10:02 BP 127/64 01/03/24 10:02 Pulse Ox 01/03/24 10:02 O2 Del Method Room Air 01/03/24 10:02 Pertinent Lab Results Pertinent Lab Results: CBC and BMP 12/2023 from [facility] Narrative Narrative: EKG 07/2023 NSR with SA Low volt QRS Airway Mallampati Class: III TM Dist: >3cm Neck ROM: Limited (s/p ACDF) Denture: Upper Loose/Missing/Broken Teeth: Yes (No lower teeth) Heart: RRR Lungs: Insp wheeze RUL, improved with cough Assessment and Plan Assessment Anesthesia Assessment: Anesthesia Plan Discussed, Smoking Cess. Discussed and PAT Visit Final Anesthetic Review Family History of Problems with Anesthesia: No History of Problems with Anesthesia: No
== END 2024-01-03 00:01 ==
LOC: HO.PAT
PROVIDERS: PCP Family Medicine; Visit Provider Neurological Surgery
DX: Z01.812 Encounter for preprocedural laboratory examination (principal); M47.816 Spondylosis without myelopathy or radiculopathy, lumbar region
CPT/HCPCS: 86850; 86900; 86901

== ENCOUNTER 2024-01-03 09:02 | Outpatient (REF) | payer MEDICAID, SELFPAY ==
--- NOTE | 2024-01-03 10:17 | MHC.AU.HA3 ---
Hearing Instrument Follow-Up- Binaural Date of Visit: 01/03/24 Right Ear: Make, Model, Color, Serial Number: Nirmala Wesleyo P 70-312 SN: [id number] Color: [place] Sliver Machine Operator Repair Warranty: 01/06/2026 Sliver Machine Operator Loss and Damage Warranty: 01/06/2026 [facility] Service Plan: 10/19/2023 Battery Size: 312 Hot End Operator/Slim Tube: Power Type of Wax Guard: Cerustop Dispensed By: [facility] Date of Fittin10/18/2022 Left Ear: Make, Model, Color, Serial Number: Nirmala Virto P 70-312 SN: [id number] Color: [place] Sliver Machine Operator Repair Warranty: 01/06/2026 Sliver Machine Operator Loss and Damage Warranty: 01/06/2026 [facility] Service Plan: 10/19/2023 Battery Size: 312 Hot End Operator/Slim Tube: Power Type of Wax Guard: Cerustop Dispensed By: [facility] Date of Fittin10/18/2022 Follow-Up Summary: Nba reports having connectivity issues since picking up the left aid from repair. Also reports aids don't feel balanced. Cleaned aids, replaced wax guards. Listening check positive bilateral. Checked settings, ran feedback which allowed for gain increase in both ears. Improvement reported. Nba reports balanced sound. Deleted all pairings and re-paired with phone. Recommendations: Recommendations: Hearing instrument follow-up or maintenance as needed. Diagnosis Code(s): Primary Diagnosis: H90.3 Bilateral Sensorineural Hearing Loss Signature: Provider: Kwame Celis, CCC-A
== END 2024-01-03 09:03 | disposition home or self-care (01) ==
LOC: HO.HAP 09:02
PROVIDERS: Visit Provider Family Medicine
DX: Z46.1 Encounter for fitting and adjustment of hearing aid (principal); H90.3 Sensorineural hearing loss, bilateral
CPT/HCPCS: 92593; 99499

== ENCOUNTER 2024-01-03 09:32 | Outpatient (REF) | payer SELFPAY | END 2024-01-03 09:33 | disposition home or self-care (01) | LOC: HO.HAP 09:32 | PROVIDERS: Visit Provider Family Medicine | DX: Z46.1 Encounter for fitting and adjustment of hearing aid (principal); H90.3 Sensorineural hearing loss, bilateral | CPT/HCPCS: V5267 ==

== ENCOUNTER → 2024-01-11 14:43 | Outpatient (AMB) | payer MEDICAID, SELFPAY ==
--- NOTE | 2024-01-11 14:50 | A.SPINEOV_ITS ---
Intake Visit Reasons: discuss sx Intake Note: Mr. Pichardo is here to Discuss Surgery. Personal Property Appraiser Required: No Allergies No Known Allergies Allergy (Verified 08/10/23 15:22) Assessment & Plan Assessment & Plan (1) Spondylosis of lumbar spine: Code(s): M47.816 - Spondylosis without myelopathy or radiculopathy, lumbar region Category: Medical Plan Dear colleague, On 01/11/2024 I saw for preoperative visit Robert Pichardo. He is scheduled for oblique lumbar interbody fusion L3-L5 on 01/16/2024. Preoperative workup showed anemia. I discussed with anesthesia that minimal blood loss as expected and therefore we will proceed. I discussed the procedure today and answered qu estions. I spent 15 minutes in his consult. Rizwan Aviles MD, PhD Spine Fellowship Trained Neurosurgeon Director, [facility] Coding Level of Care Code Est Pt Level 2 (50335) Diagnoses Spondylosis of lumbar spine M47.816
== END ==
PROVIDERS: PCP Family Medicine; Visit Provider Neurological Surgery
DX: M47.816 Spondylosis without myelopathy or radiculopathy, lumbar region (principal)
CPT/HCPCS: 99212

== ENCOUNTER → 2024-01-11 14:43 | Outpatient (BNVA) | payer SELFPAY | PROVIDERS: PCP Family Medicine; Visit Provider Neurological Surgery | DX: M47.816 Spondylosis without myelopathy or radiculopathy, lumbar region (principal) | CPT/HCPCS: 99212 ==

== ENCOUNTER 2024-01-11 15:43 | Outpatient (REF) | payer MEDICAID, SELFPAY ==
[2024-01-11 15:56] LABS: MANUAL DIFF FLAG NO
[2024-01-11 17:12] LABS: Basophils Absolute Auto 0.1 X10*3/uL (0.0-0.2); Basophils Percent Auto 1.5 % (0-2); Eosinophils Absolute Auto 0.3 X10*3/uL (0.0-0.4); Eosinophils Percent Auto 3.6 % (0-4); Hematocrit 28.3 % (42.0-52.0); Hemoglobin 8.3 g/dl (14.0-18.0); Imm Gran Abs Auto 0.04 X10*3/uL (0.00-0.03); Imm Gran Pct Auto 0.5 % (0.0-0.4); Lymphocytes Absolute Auto 2.5 X10*3/uL (1.2-4.9); Lymphocytes Percent Auto 31.3 % (20-40); Mean Corpuscular HGB Conc 29.3 g/dl (31.0-36.0); Mean Corpuscular Hemoglobin 24.1 pg (27.0-33.0); Mean Corpuscular Volume 82.3 fL (80.0-98.0); Mean Platelet Volume 9.7 fL (9.4-12.4); Monocytes Absolute Auto 0.9 X10*3/uL (0.1-1.2); Monocytes Percent Auto 10.8 % (2-11); NRBC Pct Auto 0.4 /100WBC (0.0-0.2); Neutrophils Absolute Auto 4.2 x10*3/uL (2.0-8.3); Neutrophils Percent Auto 52.3 % (45-73); Platelet Count 629 X10*3/uL (160-400); Red Blood Count 3.44 X10*6/uL (4.60-5.80); Red Cell Distribution Width 18.6 % (11.0-16.0)
== END 2024-01-11 15:44 | disposition home or self-care (01) ==
LOC: HO.LAB 15:43
PROVIDERS: Physician Assistant; PCP Family Medicine; Visit Provider Internal Medicine
DX: M51.369 Other intervertebral disc degeneration, lumbar region without mention of lumbar back pain or lower extremity pain (principal)
CPT/HCPCS: 36415; 85025

== ENCOUNTER 2024-04-25 12:16 | Outpatient (REF) | payer SELFPAY | END 2024-04-25 12:17 | disposition home or self-care (01) | LOC: HO.HAP 12:16 | PROVIDERS: Visit Provider Family Medicine | DX: Z46.1 Encounter for fitting and adjustment of hearing aid (principal); H90.3 Sensorineural hearing loss, bilateral | CPT/HCPCS: V5267 ==

== ENCOUNTER 2024-05-13 06:50 | Inpatient (IN) | payer MEDICARE, OTHER, SELFPAY ==
[2024-04-25 10:52] VITALS: BP 130/70; PULSE 78; RESP 18; O2SAT 94; BMI 25.8
[2024-05-13] VITALS (19 sets, daily range): BP systolic 118–159; BP diastolic 48–103; PULSE 64–92; RESP 14–20; TEMP 36–36.9; O2SAT 94–97; BMI 26.8
--- NOTE | ~2024-05-13 | FL_ITS ---
EXAMINATION: FL GUIDANCE ONLY HISTORY: L3-L5 OLIF COMPARISON: Correlation is made with plain films of the lumbar spine dated 10/08/2023. TECHNIQUE: Fluoroscopy time: 2 minutes, 11.2 seconds. Cumulative Dose: 7 7.383 mGy. DAP: 23.16 mGym2 Images: 6. FINDINGS: Images demonstrate posterior fusion of L3-L5 with pedicle screws and spinal stabilization rods. Intervertebral spacers are also seen at these levels. FL/FL guidance in OR IMPRESSION: Fluoroscopy during procedure. Please see procedure report for additional information. Electronically signed by: Bobby Means MD 05/13/2024 11:30 AM [facility] [place]
[2024-05-13] MEDS: methocarbamoL 750 MG TABLET PO (06:52)
[2024-05-13] MEDS: Lactated Ringers 1,000 ML 100 ML IVCONT (06:53)
--- NOTE | 2024-05-13 07:01 | MHC.SHP ---
Pre-Procedural Eval Section A - 24 Hr Update-Section A only Date of Service: 05/13/24 The patient is an INPATIENT: No Changes since office visit: No Cold of Flu in the past 2 weeks, No New Medical Problems, No Changes in Medication and No Patient answered all questions The patient has been examined within 24 hours of the surgical procedure. The History & Physical has been completed within 30 days and I have reviewed it.: No Section B - Complete if H&P > 30 days Chief Complaint: Radiculopathy, lumbar region Allergies: Allergies Allergy/AdvReac Type Severity Reaction Status Date / Time No Known Allergies Allergy Verified 08/10/23 15:22 Review of Systems Sugical H&P ROS: Negative: Constitution, Cardiovascular, Respiratory, Neurological, Psychiatric, Hem-Onc, Allergic/Immunologic, Gastrointestinal, Genitourinary, Musculoskeletal, Integumentary, Endocrine and Eyes/Ears/Nose/Throat Exam Surgical H&P Exam: Normal: HEENT, Normal: Heart, Normal: Lungs, Normal: Extremities, Normal: Abdomen, Normal: Skin and Normal: Neurological (awake,alert,oriented x 3) Plan Diagnosis/Plan: Unchanged L3-4,L4-5 Oblique lumbar interbody fusion Time Spent With Patient Time: Total time managing care of this patient today ___5_ minutes.
[2024-05-13 07:12] LABS: Hemoglobin 12.2 g/dl (14.0-18.0); Mean Corpuscular Hemoglobin 32.6 pg (27.0-33.0); Mean Corpuscular Volume 98.9 fL (80.0-98.0); Platelet Count 439 X10*3/uL (160-400); Red Blood Count 3.74 X10*6/uL (4.60-5.80); Red Cell Distribution Width 15.9 % (11.0-16.0)
--- NOTE | 2024-05-13 07:20 | P.CONAN_ITS ---
Documented by User: Milli Yusuf NP 05/12/24 11:52 HPI - Anesthesia Eval Consult details Narrative: 68yo M for L3-4,L4-5 Oblique Lumbar Interbody Fusion PAT eval 04/25/[address] Carr - pt in ER with hallucinations post ACDF, ? r/t ketamine. To avoid for OLIF. Also, pt instructed to hold suboxone Since 12/2023, pt with 2 units PRBC and restarted PO Fe. H&H from [facility] 02/2024 11.1&36.5 Per previous PAT 12/2023: s/p ACDF 08/2023 ETT 7.5 - no issue with anesthesia, but patient returned to [facility] via ambulance 2 days later with alt mental status. 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 Suboxone daily 16mg. Will not take DOS per prescriber. Smoker: 1-2 cigs daily, using nicotine patch No AAA seen on 08/2023 US PREOP Labs done with clearance: Critically low Hgb 6.8. Per clearance note, restarted pt's oral Fe supplement. No transfusion because asymptomatic. Defers to surgeon for decision on delaying surgery. Per workload, Dr Fernandes's plans to proceed without delay. Notified neurosurg office team that patient will need repeat lab draw day before surgery to ensure patient safety. Case reviewed with Dr Carr. [facility] Active Problems Active Problems: All Active Problems S/P spinal surgery (Acute) Cervical spondylosis with myelopathy and radiculopathy (Acute) Left-sided weakness (Acute) Lumbar radiculopathy (Acute) History of opioid abuse (Acute) Osteoarthritis of left knee (Acute) Osteoarthritis of right knee (Acute) DVT (deep venous thrombosis) (Acute) Right knee pain (Acute) Osteoarthritis of knee, unspecified (Acute) Opioid abuse with other opioid-induced disorder (Acute) Chronic pain syndrome (Acute) Disc degeneration, lumbar (Acute) Spondylosis of lumbar spine (Acute) Past Medical History Medical History (Updated 04/25/24 @ 10:30 by Amanda Holder RN) Hx of transfusion of packed red blood cells GI bleed Peptic ulcer Back pain Arthritis GERD (gastroesophageal reflux disease) Numbness AAA (abdominal aortic aneurysm) History of kidney stones C6 radiculopathy Hard of hearing Central stenosis of spinal canal Knee osteoarthritis Trauma in childhood Erectile dysfunction Anemia Adrenal adenoma Tobacco abuse Pulmonary nodules Depression History of ETOH abuse Osteoarthritis of knee, unspecified Opioid abuse with other opioid-induced disorder Chronic pain syndrome Disc degeneration, lumbar Spondylosis of lumbar spine Family History Family history of problems with anesthesia: No Surgical History Surgical History (Updated 04/25/24 @ 10:33 by Amanda Holder RN) History of esophagogastroduodenoscopy (EGD) Hx of fusion of cervical spine (08/08/23) History of extraction of renal calculus H/O colonoscopy H/O inguinal hernia repair History of Problems with Anesthesia: No Social History Social History (Updated 01/03/24 @ 10:30 by Dahiana Griffin RN) Household Members: None Housing: House Housing Other:: 2 family house Are you a primary ocular care technologist to a significant other at home: No Do you presently have visiting nurse or other home services: No Alcohol intake: former Comment: pressure Patient Tobacco Use Status: Current someday Tobacco user Tobacco use type: Cigarette Cigarettes Per Day: 2 Use of substances other than those prescribed or required for medical reasons: Yes Substance Use Type Other:: vape Substance Use Frequency: Daily Have you been hit, kicked, punched, or otherwise hurt by someone within the past year? If so, by whom?: No Are you DNR?: No Advance Directives: No Advance Directives Information Provided: No Advance Directives on File: No Recently lost weight without trying: No Eating poorly because of decreased appetite: No Nutrition Risks: No Nutritional Risk Poor oral hygiene: Yes (full upper denture, missing teeth in the bottom) Meds Allergies Allergy/AdvReac Type Severity Reaction Status Date / Time No Known Allergies Allergy Verified 08/10/23 15:22 Home Medications ?Medication ?Instructions ?Recorded ?Confirmed ?Last Taken ?Type bupropion HCl 100 mg tablet,12 hr 100 mg PO BID 07/25/23 04/25/24 05/13/24 History sustained-release gabapentin 100 mg capsule 600 mg PO TID 07/25/23 04/25/24 05/13/24 History omeprazole 20 mg capsule,delayed 30 mg PO BID 01/03/24 04/25/24 05/13/24 History release ferrous sulfate 325 mg (65 mg 325 mg PO BID 04/25/24 04/25/24 05/06/24 History iron) tablet,delayed release Exam Height,Weight and Vital Signs: Height 5 ft 5 in Weight 70.307 kg Last Vital Signs Pulse 78 04/25/24 10:52 Resp 18 04/25/24 10:52 BP 130/70 04/25/24 10:52 Pulse Ox 94 04/25/24 10:52 O2 Del Method Room Air 04/25/24 10:52 Narrative Narrative: EKG 07/2023 NSR with SA Low volt QRS Airway Mallampati Class: III TM Dist: >3cm Neck ROM: Limited (s/p ACDF) Denture: Upper Loose/Missing/Broken Teeth: Yes (No lower teeth) Heart: RRR Lungs: Insp wheeze RUL, improved with cough Assessment and Plan Assessment Anesthesia Assessment: Chart Reviewed Final Anesthetic Review Family History of Problems with Anesthesia: No History of Problems with Anesthesia: No Documented by User: Elda Burns DO 05/13/24 08:04 [facility] Past Medical History Medical History (Updated 04/25/24 @ 10:30 by Amanda Holder, RN) Hx of transfusion of packed red blood cells GI bleed Peptic ulcer Back pain Arthritis GERD (gastroesophageal reflux disease) Numbness AAA (abdominal aortic aneurysm) History of kidney stones C6 radiculopathy Hard of hearing Central stenosis of spinal canal Knee osteoarthritis Trauma in childhood Erectile dysfunction Anemia Adrenal adenoma Tobacco abuse Pulmonary nodules Depression History of ETOH abuse Osteoarthritis of knee, unspecified Opioid abuse with other opioid-induced disorder Chronic pain syndrome Disc degeneration, lumbar Spondylosis of lumbar spine Family History Family history of problems with anesthesia: No Surgical History Surgical History (Updated 04/25/24 @ 10:33 by Amanda Holder, RN) History of esophagogastroduodenoscopy (EGD) Hx of fusion of cervical spine (08/08/23) History of extraction of renal calculus H/O colonoscopy H/O inguinal hernia repair History of Problems with Anesthesia: No Social History Social History (Updated 01/03/24 @ 10:30 by Dahiana Griffin RN) Household Members: None Housing: House Housing Other:: 2 family house Are you a primary ocular care technologist to a significant other at home: No Do you presently have visiting nurse or other home services: No Alcohol intake: former Comment: pressure Patient Tobacco Use Status: Current someday Tobacco user Tobacco use type: Cigarette Cigarettes Per Day: 2 Use of substances other than those prescribed or required for medical reasons: Yes Substance Use Type Other:: vape Substance Use Frequency: Daily Have you been hit, kicked, punched, or otherwise hurt by someone within the past year? If so, by whom?: No Are you DNR?: No Advance Directives: No Advance Directives Information Provided: No Advance Directives on File: No Recently lost weight without trying: No Eating poorly because of decreased appetite: No Nutrition Risks: No Nutritional Risk Poor oral hygiene: Yes (full upper denture, missing teeth in the bottom) Meds Allergies Allergy/AdvReac Type Severity Reaction Status Date / Time No Known Allergies Allergy Verified 08/10/23 15:22 Home Medications ?Medication ?Instructions ?Recorded ?Confirmed ?Last Taken ?Type bupropion HCl 100 mg tablet,12 hr 100 mg PO BID 07/25/23 04/25/24 05/13/24 History sustained-release gabapentin 100 mg capsule 600 mg PO TID 07/25/23 04/25/24 05/13/24 History omeprazole 20 mg capsule,delayed 30 mg PO BID 01/03/24 04/25/24 05/13/24 History release ferrous sulfate 325 mg (65 mg 325 mg PO BID 04/25/24 04/25/24 05/06/24 History iron) tablet,delayed release Exam Exam Date and Time: 05/13/24 0720 Height,Weight and Vital Signs: Height 5 ft 5 in Weight 70.307 kg Last Vital Signs Pulse 78 04/25/24 10:52 Resp 18 04/25/24 10:52 BP 130/70 04/25/24 10:52 Pulse Ox 94 04/25/24 10:52 O2 Del Method Room Air 04/25/24 10:52 Vital Signs Pulse Rate 78 04/25/24 10:52 Respiratory Rate 18 04/25/24 10:52 Blood Pressure 130/70 04/25/24 10:52 Pulse Oximetry 94 04/25/24 10:52 Oxygen Delivery Method Room Air 04/25/24 10:52 Temperature 98.4 F 05/13/24 06:45 Pulse Rate 64 05/13/24 06:45 Respiratory Rate 17 05/13/24 06:45 Blood Pressure 123/49 L 05/13/24 06:45 Pulse Oximetry 97 05/13/24 06:45 Oxygen Delivery Method Room Air 05/13/24 06:45 Airway Mallampati Class: II TM Dist: >3cm Neck ROM: Limited Loose/Missing/Broken Teeth: Yes (edentulous) Heart: S1S2 Lungs: diminished bilaterally Assessment and Plan Assessment Anesthesia Assessment: Anesthesia Plan Discussed and Chart Reviewed Final Anesthetic Review Family History of Problems with Anesthesia: No History of Problems with Anesthesia: No NPO: Yes ASA Class: III Final Preanesthetic Review: No Changes in Pt Med Stat, Meds/Allgs Chart Reviewed, Consent Obtained/Reviewed and Anes Risks/Benef Reviewed Patient Risk: Intermediate Procedure Risk: Intermediate Anesthetic Plan Anesthetic Plan: GA and Agree w/ Assess. and Plan Disposition: Standard PACU
--- NOTE | 2024-05-13 07:23 | PHA.MEDREC ---
Addendum entered by Jose Antonio Malave 05/13/24 08:17: Also, patient stated he takes 300mg of Gabapentin three times daily, updated dose on med list. Original Note: Pharmacy Consult ? Medication Reconciliation Pharmacy has completed the medication reconciliation. Spoke with patient at bedside, he stated he stopped taking naproxen and suboxone about 1 week ago. This matches claim history, removed these two meds from the list. He confirmed the other medications verbally.
[2024-05-13 07:28] LABS: Anion Gap 14 (12-20); Blood Urea Nitrogen 8 mg/dL (9-16); Calcium 8.7 mg/dL (8.4-10.2); Carbon Dioxide 27 mmol/L (22-29); Chloride 105 mmol/L (96-108); Creatinine Clr Calc Pharmacy 98.7; Estimated Glomerular Filt Rate > 60; Glucose Fasting 97 mg/dL (60-99); Potassium 3.6 mmol/L (3.3-5.1); Sodium 142 mmol/L (135-145)
[2024-05-13] MEDS: ceFAZolin Sodium/Dextrose,Iso 2 GM/50 ML PIGGYBACK IV ×3 (07:55→20:04)
--- NOTE | 2024-05-13 10:18 | P.OP_ITS ---
Operative Note Operative Note Date of Service: 05/13/24 Narrative: Preop Diagnosis: 1.) L3-4, L4-5 spinal stenosis due to lumbar degenerative disc disease; L3-4 spondylolisthesis 2.) Neurogenic claudication back pain Procedure: 1) L3-4, L4-5 discectomy, arthrodesis and implantation cage through an anterolateral, retroperitoneal approach 2) L3-L5 posterior instrumented fusion 3) allograft 4) Injection of 10 cc of Exparel at the bilateral L4 transverse process for a muscular erector spinae block and additional Exparel in paravertebral tissue for postop management Consent Informed Consent was obtained for this operation. I have explained the nature, purpose and benefits of the operation. I have discussed the risks and benefit of the operation including possible complications or adverse events with patient/family. Alternative(s) were discussed with the patient with their rela tive benefits and risks as well as the consequences of not accepting the operation were included in obtaining consent. Surgeon: FITO JARVIS MD, PHD Procedure Assisted By: mónica Cota Description of Procedure This patient is suffering from back pain and neurogenic claudication with MRI showing severe lumbar degenerative disc disease L3-4 and L4-5 with [id number] central stenosis. At L3-4 there is also a spondylolisthesis The patient was offered an oblique lumbar interbody fusion L3-4, L4-5. The procedure complications were explained. The patient was consented. The patient was brought to the operating room and endotracheally intubated. The patient was turned in a lateral position with the left side up. Prep and drape was done followed by timeout. A small incision was made in the left lower abdominal quadrant. The muscle fascia was opened after which the 3 muscle layer was split to enter the retroperitoneal space. Dilators were docked in the anterior one thi rd of the L4-5 disc space followed by a retractor. The retractor was opened. The L4-5 disc space was exposed. An annulotomy was done after which an elevator Ramey was used to release the disc material from its endplates and to perforate the contralateral side. A partial discectomy was done. An 8 mm and 10 mm height trial implant was inserted. The discectomy was completed. The endplates were prepared. An 10 x 50 mm with 6 degree lordosis 4 web cage filled with allograft was inserted into the disc space under fluoroscopic guidance. This resulted in lift of the L4-5 disc space and opening of the foramen. The retractor was removed and reinserted over the L3-4 level. The retractor was opened. The L3-4 disc space was exposed. An annulotomy was done after which with the elevate Ramey disc material was released from the endplates. The diskectomy was completed. The endplates were prepared after which a 10 x 50 and 0 degree 4 web cage filled with allograft was inserted into the disc space. This resulted in a correction of the spondylolisthesis. The retractor was removed. Hemostasis was done. The incision was closed in 2 layers. Steri-Strips used to approximate incision. An OpSite with Tegaderm was used to cover the incision. This marked first part of the procedure. The patient was turned prone on the Song spine table. 2C arms were installed for fluoroscopy. Prep and drape was done followed by a second timeout. Injection of 10 cc of Exparel at the bilateral L4 transverse process for a muscular erector spinae block. Two paramedian incisions were made lateral from the L3-L5 pedicles. The muscle fascia was opened after which the muscle layer was split bluntly to expose the posterolateral gutter. The following steps were taken. A pediguard tap was used to create a transpedicular trajectory into the vertebral body. A K wire was placed. A specially designed instrument was advanced over the K wire to decorticate the posterolateral gutter in preparation for the posterolateral fusion. A pedicle screw was advanced over the K wire and the K wire was removed. The steps were done for the bilateral L3, L4 and L5 pedicles. A total of 6 screws were placed with a diameter of 6.5 x 50 mm. Pedicle screws were connected with 75 mm anastasia bilaterally and locked down with locking caps. The extension towers were removed. The posterolateral gutter was filled with allograft to complete the posterolateral L3-L5 fusion. Hemostasis was done and the incision was closed in 2 layers. Steri-Strips were used to approximate the incision. An OpSite were taken and was used to cover the incision. All sponge and needle counts were correct. Patient was extubated and transferred in stable is to recovery room. Anesthesia: General Estimated Blood Loss (ml): 50 mL Duration of Surgery: 2 hours 30 minutes Complications: None Postoperative Plan: Admit to inpatient for observation
[2024-05-13] MEDS: HYDROmorphone HCl 1 MG/ML SYRINGE IVPUSH ×2 (11:15→22:59)
[2024-05-13] MEDS: HYDROmorphone HCl 0.5 MG/0.5 ML SYRINGE IVPUSH ×4 (11:35→12:05)
[2024-05-13] MEDS: Gabapentin 300 MG CAPSULE PO ×2 (14:34→20:04)
[2024-05-13] MEDS: Ketorolac Tromethamine 15 MG/ML VIAL IVPUSH ×3 (14:35→22:52)
[2024-05-13] MEDS: Omeprazole 20 MG CAPSULE.DR PO (15:46)
[2024-05-13] MEDS: oxyCODONE HCl Immed Release 5 MG TABLET 10 MG PO (15:46)
[2024-05-13] MEDS: 0.9 % Sodium Chloride 1,000 ML 75 ML IVCONT (15:49)
[2024-05-13] MEDS: Acetaminophen 1,000 MG/100 ML PIGGYBACK 400 MG IV ×2 (15:50→21:00)
[2024-05-13] MEDS: Ferrous Sulfate 324 MG TABLET.DR PO (20:04)
[2024-05-13] MEDS: Docusate Sodium 100 MG CAPSULE PO (20:04)
[2024-05-14] MEDS: ceFAZolin Sodium/Dextrose,Iso 2 GM/50 ML PIGGYBACK IV (01:54)
[2024-05-14] MEDS: Acetaminophen 1,000 MG/100 ML PIGGYBACK 400 MG IV ×2 (02:50→09:31)
[2024-05-14] MEDS: HYDROmorphone HCl 1 MG/ML SYRINGE IVPUSH (02:56)
[2024-05-14 03:25] VITALS: BP 122/66; PULSE 71; RESP 16; TEMP 37.2; O2SAT 93
[2024-05-14] MEDS: 0.9 % Sodium Chloride 1,000 ML 75 ML IVCONT (05:09)
[2024-05-14] MEDS: Omeprazole 20 MG CAPSULE.DR PO (05:09)
[2024-05-14] MEDS: Ketorolac Tromethamine 15 MG/ML VIAL IVPUSH (05:09)
[2024-05-14] MEDS: buPROPion HCl XL 150 MG TAB.ER.24H PO (06:59)
[2024-05-14] MEDS: Gabapentin 300 MG CAPSULE PO (06:59)
[2024-05-14] MEDS: oxyCODONE HCl Immed Release 5 MG TABLET 10 MG PO ×2 (06:59→11:14)
[2024-05-14] MEDS: Ferrous Sulfate 324 MG TABLET.DR PO (06:59)
[2024-05-14] MEDS: Docusate Sodium 100 MG CAPSULE PO (06:59)
[2024-05-14 07:48] VITALS: BP 139/82; PULSE 73; RESP 18; TEMP 37.5; O2SAT 96
--- NOTE | 2024-05-14 08:10 | HO.POSTANES ---
Post Anesthesia Evaluation Post Anesthesia Evaluation Date of Service: 05/14/24 Vital Signs: Vital Signs Temp Pulse Resp BP Pulse Ox O2 Del Method 05/14/24 07:48 99.5 F 73 18 139/82 96 Room Air 05/14/24 03:25 98.9 F 71 16 122/66 93 Room Air Anesthesia: General Endotracheal-GETA Mental Status: Awake Pain Control: Satisfactory Nausea/Vomiting: None Hydration: Adequate Anesthesia-Related Issues: No Anes. Related Issues
[2024-05-14 08:23] VITALS: BP 139/82; PULSE 73; O2SAT 96
--- NOTE | 2024-05-14 09:39 | P.DS_ITS ---
DS: Providers Provider Date of Service: 05/14/24 Date of admission: 05/13/24 06:50 Date of discharge: 05/14/24 Primary care physician: Franca Wells MD DS: Summary Time Attestation Discharge Coordination Time (in mins): 15 Quality: Safe Use of Opioids Does Pt have an Active Cancer Diagnosis on the Problem List?: No Quality: Stroke Does the patient have a stroke diagnosis?: No Physical Exam Vital Signs: Vital Signs: Last Vital Signs Temp 99.5 F 05/14/24 07:48 Pulse 73 05/14/24 08:23 Resp 18 05/14/24 07:48 BP 139/82 05/14/24 08:23 Pulse Ox 96 05/14/24 08:23 O2 Del Method Room Air 05/14/24 07:48 BMI result Body Mass Index 26.8 Discharge Plan Discharge Anticipated Discharge Date/Time: 05/14/24 09:45 Patient Disposition: Home, Self-Care Discharge Diagnosis: S/P l3-5 olif Referrals: Franca Wells MD [Primary Care Provider] - 1 Week Discharge Medications: New oxycodone 5 mg tablet See Rx Instructions .ROUTE .COMPLEX PRN (Reason: pain (scale score 7-10)) Qty: 30 0RF Rx Instructions: Take 1-2 tablets by mouth every 4-6 hours. Partial Fill upon patient request. Continued omeprazole 20 mg Capsule,Delayed Release(Dr/Ec) 30 mg PO BID ferrous sulfate 325 mg (65 mg iron) tablet,delayed release (DR/EC) 325 mg PO BID bupropion HCl 100 mg tablet sustained-release 12 hr 100 mg PO BID gabapentin 100 mg Capsule 300 mg PO TID Discharge Orders: Discharge Order (Routine); Ordered 05/14/24 Ordered By: Lv Andrea Diet: Advance to usual diet Activity on Discharge: As tolerated Stand Alone Forms: Patient Portal Discharge page Print Language: Divehi Activity Restrictions/Additional Instructions: After your spinal surgery we ask you to observe the following restrictions/guidelines: Activity: With lumbar fusion surgery it is normal to have days in the first couple of weeks where you have increased leg pain. This usually lasts 1-2 days and self resolves with the continuation of medication. Attempt to stay mobile and continue activity as tolerated. It is normal to feel some discomfort as you increase your activity, but that will improve with time. We ask you avoid heavy lifting or activities that cause pain. As a general rule, 8lbs is a safe limit for lifting right after surgery. Walk as much as you feel comfortable but not to exhaustion. You will feel extra tired the first few days after surgery. Stay well hydrated. It is OK to walk up and down stairs You may return to driving when you are off narcotics (such as vicodin, oxycodone, dilaudid, etc), and you are back to normal functional capacity. If you have any concerns please check with office before driving. Return to work is specific to each patient and each surgery, so please speak with your doctor/PA at first follow up. Please bring paperwork such as FMLA at that time if you need it filled out. Medications: A short supply of oxycodone has been sent to your pharmacy, use this sparingly and call the office if you continue to have pain once this prescription is up. It is recommended that you take Tylenol 500 mg every 4 hours for the 1st week postoperatively, ?alongside ibuprofen 600 mg every 8 hours. We will give you a short supply of narcotics after surgery (usually one weeks worth). ??Please use this for breakthrough pain that is refractory to the Tylenol ibuprofen. If you need more please call the office but do not use more than prescribed. You will need to give our office 48 hours notice if you need narcotics refilled and we do not fill narcotics on weekends or evenings. If you are on a narcotic, it is a good idea to take a stool softener such as colace or senna to avoid constipation If you take blood thinner such as aspirin, Plavix, Coumadin, Effient, Eliquis etc for conditions such as Afib, DVT, Pulmonary embolus, coronary disease, stents etc please speak with your surgeon about specific details as to when you can resume these medications. You can resume NSAIDs on post op day 1 (eg: Motrin, Naproxen, etc). Follow up: Please call the office, , after surgery to arrange a 3 week follow up for wound check. Wound Care: You may remove your dressing on the first day after surgery. ?You may ?leave open to air. Please do not remove the steri strips underneath. they will fall off on their own in one week. IT IS NORMAL FOR THE WOUND TO OOZE OR BE BLOODY FOR A FEW DAYS AFTER SURGERY. ?IF THIS HAPPENS JUST PLACE NEW DRESSING OVER IT TO AVOID STAINING CLOTHES. You may shower on post op day # 1 We ask that you do not let the water soak the wound. If it does get wet, just towel dry lightly. Please do not scrub your incision or place any type of chemical/ointment on the wound. No tub baths, pools or jacuzzis for one month. If you have any leaking or redness from your wound, or fevers, please call office Care Plan Goals: Return to normal activity as tolerated Health Concerns: None Plan of Treatment: Follow-up in clinic in 2-3 weeks Assessment: POD: 1 Procedure: L3-5 OLIF Nba is a pleasant 68-year-old male who underwent L3-[address] Aviles yesterday. He was seen this morning sitting upright in bed on [address]. Patient reports he is up walking around is otherwise doing well. He feels his symptoms are much better than pre-operatively. He still reports mild pain in his low back, with good relief with pain medication. He is voiding well, tolerating diet. Afebrile, vital signs stable. Full strength 5/5 UE / LE. Back dressings have some staining without signs of hematoma. No active sanguineous drainage. Area is dry. Plan: Nba is a pleasant 68-year-old male who underwent L3-[address] Aviles yesterday. He is progressing normally. Patient meets criteria to be medically discharged home. He was seen at bedside with Dr. Aviles. I sent in a short prescription for oxycodone to his pharmacy. This should be used sparingly for breakthrough pain given his history of issues with opiates. He has discussed this with BAIRON Merino who recommended he restart his Suboxone when his oxycodone prescription runs out if he is still in pain. Lv Aviles MD,PhD [facility]
--- NOTE | 2024-05-14 09:45 | HO.NEURO.PN ---
Neurosurgery Operative Note Date of Service: 05/14/24 Narrative: POD: 1 Procedure: L3-5 OLIF Nba is a pleasant 68-year-old male who underwent L3-[address] Aviles yesterday. He was seen this morning sitting upright in bed on [address]. Patient reports he is up walking around is otherwise doing well. He feels his symptoms are much better than pre-operatively. He still reports mild pain in his low back, with good relief with pain medication. He is voiding well, tolerating diet. Afebrile, vital signs stable. Full strength 5/5 UE / LE. Back dressings have some staining without signs of hematoma. No active sanguineous drainage. Area is dry. Plan: Nba is a pleasant 68-year-old male who underwent L3-[address] Aviles yesterday. He is progressing normally. Patient meets criteria to be medically discharged home. He was seen at bedside with Dr. Aviles. I sent in a short prescription for oxycodone to his pharmacy. This should be used sparingly for breakthrough pain given his history of issues with opiates. He has discussed this with BAIRON Merino who recommended he restart his Suboxone when his oxycodone prescription runs out if he is still in pain. Lv Aviles MD,PhD [facility]
--- NOTE | 2024-05-14 10:36 | MHC.CM.PN ---
IMM delivered. Patient lives in a home w/ his sister. Ambulates w/ cane. Also has walker and w/c - uses PRN. Mostly independent w/ care - sister assists PRN. PCP Franca Wells No HCP. CM provided education and offered assistance. Patient declined. DP: Medically cleared for dc home self care. Sister will provide transport at 11:30. RN aware.
[2024-05-14] MEDS: methocarbamoL 750 MG TABLET PO (11:15)
== END 2024-05-14 11:46 | disposition home or self-care (01) | DRG 448 ==
LOC: HO.SSSA 06:52 → HO.S3 13:05
PROVIDERS: Neurological Surgery; Nurse Practitioner; Admitting Provider Physician Assistant; PCP Family Medicine; Visit Provider Physician Assistant
PROC: 0SG10A0 Fusion of 2 or more Lumbar Vertebral Joints with Interbody Fusion Device, Anterior Approach, Anterior Column, Open Approach (ICD-10-PCS; principal; 2024-05-13 07:30)
DX: M51.369 Other intervertebral disc degeneration, lumbar region without mention of lumbar back pain or lower extremity pain (principal); M48.062 Spinal stenosis, lumbar region with neurogenic claudication; F17.210 Nicotine dependence, cigarettes, uncomplicated; Z71.6 Tobacco abuse counseling; Z79.899 Other long term (current) drug therapy
CPT/HCPCS: 36415; 80048; 85027; 86850; 86900; 86901; 97116; 97162; C1713; C1889; J0131; J0665; J0666; J0690; J1100; J1171; J1885; J2003; J2405; J2704; J3010; L8699

== ENCOUNTER → 2024-05-13 06:50 | Outpatient (BNV) | payer MEDICARE, MEDICAID, SELFPAY | PROVIDERS: Admitting Provider Physician Assistant; PCP Family Medicine; Visit Provider Neurological Surgery | DX: M48.062 Spinal stenosis, lumbar region with neurogenic claudication (principal); M47.896 Other spondylosis, lumbar region | CPT/HCPCS: 20930; 22558; 22585; 22612; 22614; 22840; 22853 ==

== ENCOUNTER 2024-06-03 13:08 | Outpatient (AMB) | payer MEDICARE, MEDICAID, SELFPAY ==
--- NOTE | 2024-06-03 13:20 | HO.SPINEOV ---
Intake Visit Reasons: 1st post op Intake Note: Mr. Pichardo is here today for his 1st post op appointment. Screen Printing Inspector Required: No Allergies No Known Allergies Allergy (Verified 08/10/23 15:22) Assessment & Plan Assessment & Plan (1) S/P spinal surgery: Code(s): Z98.890 - Other specified postprocedural states Category: Surgical Plan procedure: L3-4, L4-5 OLIF Nba is a pleasant 68-year-old male who comes in today for his 1st postoperative visit after having a L3-[address] Aviles a few weeks ago. He states that overall he is doing well since the surgery. He feels better than he did prior to the surgery. He did report that the 1st few days back at home were difficult, especially for him to navigate stairs, but he has been better since then. He feels his strength is much better in his lower extremities, in his primary concern at this point is in regards to his knees. He feels that once his back pain was resolved his knee pain became more apparent. This is a common phenomenon we see among patients. We discussed the postoperative healing course and I answered all of his questions to the best of my ability. No new neurological deficits. The patient ambulates well with the assistance of a cane. His posterior and lateral incision sites appear closed and well healing. No signs of drainage or swelling. I would like to follow up with Robert again in 6 weeks and obtain a set of x-rays to review with him. Lv Aviles MD,PhD [facility] Orders: Orders XR lumbar spine 4V min Today Z98.890 - Other specified postprocedural states Coding Level of Care Code Global (87435) Diagnoses S/P spinal surgery Z98.890
== END 2024-06-03 13:59 | disposition home or self-care (01) ==
PROVIDERS: PCP Family Medicine; Visit Provider Physician Assistant
DX: Z98.890 Other specified postprocedural states (principal)
CPT/HCPCS: 99024

== ENCOUNTER 2024-06-03 13:08 | Outpatient (REF) | payer MEDICARE, MEDICAID, SELFPAY | END 2024-06-03 13:09 | disposition home or self-care (01) | LOC: HO.HOSX 13:08 | PROVIDERS: PCP Family Medicine; Visit Provider Physician Assistant | DX: Z47.89 Encounter for other orthopedic aftercare (principal); Z98.890 Other specified postprocedural states | CPT/HCPCS: 99212 ==

== ENCOUNTER 2024-07-15 12:02 | Outpatient (REF) | payer MEDICARE, MEDICAID, SELFPAY ==
--- NOTE | ~2024-07-15 | XR_ITS ---
CLINICAL HISTORY: Z98.890 - Other specified postprocedural states 4 views lumbar spine Comparison: None Findings: 6 mm anterolisthesis L3 on L4 in neutral measures 5.4 mm with flexion and 6.4 mm with extension. L3-L5 posterior fusion. L3-4 and L4-5 interbody metallic disc spacers. Mild compression deformities in T12, L2, L4 and L5. Moderate to moderately severe multilevel disc space narrowing with prominent endplate osteophytes. Prominent aortic calcifications. Multiple pill-like densities project over the right lower quadrant. IMPRESSION: 1. Grade 1 spondylolisthesis L3-4 with minimal instability. 2. Age-indeterminate multilevel mild compression fractures. 3. Postsurgical changes L3-L5. This document has been electronically signed by: Ana Hall DO on 07/16/2024 16:50:32
== END 2024-07-15 12:03 | disposition home or self-care (01) ==
LOC: HO.HOSX 12:02
PROVIDERS: Visit Provider Physician Assistant
DX: Z98.890 Other specified postprocedural states (principal)
CPT/HCPCS: 72110

== ENCOUNTER 2024-07-15 13:26 | Outpatient (AMB) | payer MEDICARE, MEDICAID, SELFPAY ==
--- NOTE | 2024-07-15 13:30 | A.SPINEOV_ITS ---
Intake Visit Reasons: 2ndpost op with Xrays Intake Note: Mr. Pichardo is here today for his 2nd post op with x-rays. University Registrar Required: No Allergies No Known Allergies Allergy (Verified 07/15/24 14:27) Assessment & Plan Assessment & Plan (1) S/P spinal surgery: Code(s): Z98.890 - Other specified postprocedural states Category: Surgical Plan Procedure: L3-5 OLIF Nba is a pleasant 68 year old male who underwent L3-5 OLIF on 05/13/24. He comes in today for his second postoperative visit. He has done very well since his last visit. He reports that all of his low back pain is gone. 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 He does state that his bilateral knee are still very troublesome for him, but he will be following up with Orthopedics who he recently spoke to. I reviewed his x-ray imaging during this visit which shows stable placement of the surgical construct and no changes from fluoroscopy. No new neurological deficits. The patient ambulates well with the assistance of a cane. His incision sites are closed and well healed. I would like to follow up with Robert again 1 year out from surgery for his final postoperative visit. I will order him a CT scan of the lumbar spine to be completed 10 months out from surgery to review for fusion. Orders: Orders CT lumbar spine wo IV con 03/13/25 Z98.890 - Other specified postprocedural states XR lumbar spine 4V min 07/15/24 Z98.890 - Other specified postprocedural states Coding Level of Care Code Global (17912) Diagnoses S/P spinal surgery Z98.890
== END 2024-07-15 14:55 | disposition home or self-care (01) ==
LOC: HO.HNS 13:26
PROVIDERS: PCP Family Medicine; Visit Provider Physician Assistant
DX: Z98.890 Other specified postprocedural states (principal)
CPT/HCPCS: 99024

== ENCOUNTER → 2024-07-15 13:34 | Outpatient (BNV) | payer MEDICARE, MEDICAID, SELFPAY | PROVIDERS: Visit Provider Radiology Diagnostic Radiology | DX: M43.16 Spondylolisthesis, lumbar region (principal) | CPT/HCPCS: 72110 ==

== ENCOUNTER 2024-09-12 08:11 | Outpatient (REF) | payer SELFPAY ==
--- NOTE | 2024-09-12 09:11 | MHC.AU.HA3 ---
Hearing Instrument Follow-Up- Binaural Date of Visit: 09/12/24 Right Ear: Make, Model, Color, Serial Number: Phonmelissa Virto P 70-312 SN: [id number] Color: [place] Loom Starter Repair Warranty: 01/06/2026 Loom Starter Loss and Damage Warranty: 01/06/2026 [facility] Service Plan: 10/19/2023 Battery Size: 312 Radiological Engineer/Slim Tube: Power Type of Wax Guard: Cerustop Dispensed By: [facility] Date of Fittin10/18/2022 Left Ear: Make, Model, Color, Serial Number: Phonak Virto P 70-312 SN: [id number] Color: [place] Loom Starter Repair Warranty: 01/06/2026 Loom Starter Loss and Damage Warranty: 01/06/2026 [facility] Service Plan: 10/19/2023 Battery Size: 312 Radiological Engineer/Slim Tube: Power Type of Wax Guard: Cerustop Dispensed By: [facility] Date of Fittin10/18/2022 Follow-Up Summary: Nba reports that his right hearing aid fell out and broke, he patched the shell himself but notes the hearing aid continues to shift in his ear and fall out at times. Also having trouble with his phone connection. Took impression without incidence and sending aid to [employer] for repair. Will hold off on dealing with phone issue until aid is back from repair. Advised cost of $50 when picking up. Recommendations: Recommendations: Patient will be contacted when materials have arrived. Recommendations (Other): Needs appointment. Diagnosis Code(s): Primary Diagnosis: H90.3 Bilateral Sensorineural Hearing Loss Signature: Provider: Kwame Celis, [facility]
== END 2024-09-12 08:12 | disposition home or self-care (01) ==
LOC: HO.HAP 08:11
PROVIDERS: Visit Provider Family Medicine
DX: Z13.89 Encounter for screening for other disorder (principal)

== ENCOUNTER 2024-10-03 08:35 | Outpatient (REF) | payer SELFPAY ==
--- NOTE | 2024-10-03 09:56 | MHC.AU.HA3 ---
Hearing Instrument Follow-Up- Binaural Date of Visit: 10/03/24 Right Ear: Make, Model, Color, Serial Number: Nirmala Wesleyo P 70-312 SN: [id number] Color: [place] Supervisor Gluing Repair Warranty: 01/06/2026 Supervisor Gluing Loss and Damage Warranty: 01/06/2026 [facility] Service Plan: 10/19/2023 Battery Size: 312 Import/Export Specialist/Slim Tube: Power Type of Wax Guard: Cerustop Dispensed By: [facility] Date of Fittin10/18/2022 Left Ear: Make, Model, Color, Serial Number: Nirmala Wesleyo P 70-312 SN: [id number] Color: [place] Supervisor Gluing Repair Warranty: 01/06/2026 Supervisor Gluing Loss and Damage Warranty: 01/06/2026 [facility] Service Plan: 10/19/2023 Battery Size: 312 Import/Export Specialist/Slim Tube: Power Type of Wax Guard: Cerustop Dispensed By: [facility] Date of Fittin10/18/2022 Follow-Up Summary: Nba is seen to coal picker his repaired right hearing aid. He reports the fit is good and secure, reports the aid sounds good and clear. Paired aids in target, paired aids with his phone. Nba reported that the left aid felt weak. We changed the wax guard and Nba still found it to be muffled. Nba then informed me that he had recently found the left aid in a cup of coffee. Reported he got it out and dried it off and it was working so figured it was fine. Suggested sending out the left due to complaint of being weak following time submerged in coffee. Recommendations: Recommendations: Patient will be contacted when materials have arrived. Recommendations (Other): Needs appoint to ensure phone is connected with aids after repair. Diagnosis Code(s): Primary Diagnosis: H90.3 Bilateral Sensorineural Hearing Loss Signature: Provider: Kwame Celis, [facility]
== END 2024-10-03 08:36 | disposition home or self-care (01) ==
LOC: HO.HAP 08:35
PROVIDERS: PCP Family Medicine; Visit Provider Otolaryngology
DX: Z46.1 Encounter for fitting and adjustment of hearing aid (principal); H90.3 Sensorineural hearing loss, bilateral
CPT/HCPCS: 92593; V5266

== ENCOUNTER 2024-10-16 10:14 | Outpatient (REF) | payer SELFPAY ==
--- NOTE | 2024-10-16 12:37 | MHC.AU.HA3 ---
Hearing Instrument Follow-Up- Binaural Date of Visit: 10/16/24 Right Ear: Make, Model, Color, Serial Number: Nirmala Wesleyo P 70-312 SN: [id number] Color: [place] Senior Budget Analyst Repair Warranty: 01/06/2026 Senior Budget Analyst Loss and Damage Warranty: 01/06/2026 [facility] Service Plan: 10/19/2023 Battery Size: 312 Vocational Adviser/Slim Tube: Power Type of Wax Guard: Cerustop Dispensed By: [facility] Date of Fittin10/18/2022 Left Ear: Make, Model, Color, Serial Number: Nirmala Wesleyo P 70-312 SN: [id number] Color: [place] Senior Budget Analyst Repair Warranty: 01/06/2026 Senior Budget Analyst Loss and Damage Warranty: 01/06/2026 [facility] Service Plan: 10/19/2023 Battery Size: 312 Vocational Adviser/Slim Tube: Power Type of Wax Guard: Cerustop Dispensed By: [facility] Date of Fittin10/18/2022 Follow-Up Summary: Here to lease picker left aid from repair and make sure phone is connecting with aids. Nba reports repaired aid sounds much better. Connected to phone. Nba notes the canal on his repaired right aid did not come back as long as he'd hoped based off what the impression looked like. He reports it fell out while he was mowing the lawn and sweaty recently. Advised not to wear hearing aids while mowing due to noise. Discussed sending back out and requesting longer canal. Nba reports he doesn't want to do that at this time but will return if he has any more issues with it. Recommendations: Recommendations: Hearing instrument follow-up or maintenance as needed. Diagnosis Code(s): Primary Diagnosis: H90.3 Bilateral Sensorineural Hearing Loss Signature: Provider: Kwame Celis, [facility]
== END 2024-10-16 10:15 | disposition home or self-care (01) ==
LOC: HO.HAP 10:14
PROVIDERS: Visit Provider Family Medicine
DX: Z46.1 Encounter for fitting and adjustment of hearing aid (principal); H90.3 Sensorineural hearing loss, bilateral
CPT/HCPCS: V5266

== ENCOUNTER 2024-10-23 14:56 | Outpatient (AMB) | payer MEDICARE, MEDICAID, SELFPAY ==
[2024-10-23 15:07] VITALS: BP 145/72; PULSE 68; RESP 20; O2SAT 98; BMI 27.5
--- NOTE | 2024-10-23 15:07 | MHC.OFFVIS ---
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 He was treated at [facility] [place] with neurosurgery for correction of his cervical and lumbar spinal stenosis. Now he reports great improvement in neck pain and he reports improvement in lower back symptoms. He now is interested in performance of the total knee replacement. In the past she was seen by Dr. Garcia and Dr. Garcia was considering total knee replacement however he was concerned about cervical and lumbar spinal stenoses. Now he is back in my office requesting another referral to Dr. Garcia. I will refer him to [facility] orthopedic surgery. Prior: He received radiofrequency ablation right genicular nerves in April 2021, he reported 9 months of pain absence. Second radiofrequency ablation was offered however patient had multiple social obstacles to go for the procedure. He had multiple sessions of physical therapy to treat the pain in his knee. He received multiple rounds of steroid injections into the knee. He tried NSAIDs and Tylenol and those are not effective for pain control. He has opioid use disorder and currently on Suboxone to treat this condition.He admits smoking cigarettes 1 pack per day he denies drinking alcohol he drinks 3 cups of coffee in the morning . [facility] Medical History Hx of transfusion of packed red blood cells GI bleed Peptic ulcer Back pain Arthritis GERD (gastroesophageal reflux disease) Numbness AAA (abdominal aortic aneurysm) History of kidney stones C6 radiculopathy Hard of hearing Central stenosis of spinal canal Knee osteoarthritis Trauma in childhood Erectile dysfunction Anemia Adrenal adenoma Tobacco abuse Pulmonary nodules Depression History of ETOH abuse Osteoarthritis of knee, unspecified Opioid abuse with other opioid-induced disorder Chronic pain syndrome Disc degeneration, lumbar Spondylosis of lumbar spine Surgical History History of esophagogastroduodenoscopy (EGD) Hx of fusion of cervical spine (08/08/23) History of extraction of renal calculus H/O colonoscopy H/O inguinal hernia repair Social History (Updated 01/03/24 @ 10:30 by Dahiana Griffin RN) Household Members: Family Housing: House Housing Other:: 2 family house Are you a primary pharmacist critical care to a significant other at home: No Do you presently have visiting nurse or other home services: No Alcohol intake: former Comment: see charting this is baseline md. Burns aware Patient Tobacco Use Status: Current everyday Tobacco user Tobacco use type: Cigarette Cigarettes Per Day: 2 e-Cigarette/Vaping Use: Never Used Substance Use Type: Marijuana service: No Review of Systems Const All systems reviewed & are unremarkable except as noted in HPI and below Physical Exam Vital Signs: Last Vital Signs Pulse 68 10/23/24 15:07 Resp 20 10/23/24 15:07 BP 145/72 H 10/23/24 15:07 Pulse Ox 98 10/23/24 15:07 Oxygen Delivery Method Room Air 10/23/24 15:07 BMI result Body Mass Index 27.5 Eyes Pupils: Equal, round and reactive pupils present EOM: EOMs intact bilaterally Chest Chest palpation & inspection: normal inspection of the chest Resp Effort & Inspection: normal respiratory effort, able to speak in complete sentences, normal respiratory pattern, no audible wheezes and no cough Cardio Jugular venous distension: no JVD Back/Spine/Pelvis Other: tenderness on palpation in paraspinal spinal region in lumbar spine. Loading test is positive. Range of motion in lumbar spine is preserved. Flexing forward aggravates his pain as well as flexing backwards. Neuro Cranial nerves: Yes Equal, round and reactive pupils present Extrem Other: Limited range of motion in bilateral knees. Psych Speech and movement: Normal speech and movement present Affect: normal affect Attitude: cooperative Thought process: Normal thought process present Thought content: Normal thought content present Insight: Good insight present (Psych) Judgement: Good judgement present (Psych) Results Reviewed Results Reviewed: His x-ray demonstrated severe bilateral varus pattern osteoarthritis Assessment & Plan Assessment & Plan (1) Osteoarthritis of right knee: Code(s): M17.11 - Unilateral primary osteoarthritis, right knee Category: Medical (2) Right knee pain: Code(s): M25.561 - Pain in right knee Category: Medical Plan As patient requested I refer him to Orthopedic surgery for the consideration of total knee replacement. He he had completed treatment with neurosurgery for cervical and lumbar spinal stenosis. Orders: Referrals Orthopedics Referral M17.11 - Unilateral primary osteoarthritis, right knee, M25.561 - Pain in right knee Coding Level of Care Code Est Pt Level 3 (11248) Diagnoses Osteoarthritis of right knee M17.11 Right knee pain M25.561
== END 2024-10-23 15:16 | disposition home or self-care (01) ==
LOC: HO.PMC 14:56
PROVIDERS: PCP Family Medicine; Visit Provider Anesthesiology
DX: M17.11 Unilateral primary osteoarthritis, right knee (principal); M25.561 Pain in right knee
CPT/HCPCS: 99213

== ENCOUNTER → 2024-10-23 14:56 | Outpatient (BNVA) | payer MEDICARE, MEDICAID, SELFPAY | PROVIDERS: PCP Family Medicine; Visit Provider Anesthesiology | DX: M17.11 Unilateral primary osteoarthritis, right knee (principal); M25.561 Pain in right knee | CPT/HCPCS: 99212 ==

== ENCOUNTER 2024-12-11 11:18 | Outpatient (REF) | payer MEDICARE, MEDICAID, SELFPAY | END 2024-12-11 11:19 | disposition home or self-care (01) | LOC: HO.HAP 11:18 | PROVIDERS: Visit Provider Family Medicine | DX: Z13.89 Encounter for screening for other disorder (principal) ==

== ENCOUNTER 2024-12-11 11:30 | Outpatient (REF) | payer SELFPAY | END 2024-12-11 11:31 | disposition home or self-care (01) | LOC: HO.HAP 11:30 | PROVIDERS: Visit Provider Family Medicine | DX: Z46.1 Encounter for fitting and adjustment of hearing aid (principal); H90.3 Sensorineural hearing loss, bilateral | CPT/HCPCS: V5267 ==

== ENCOUNTER 2024-12-17 13:49 | Outpatient (REF) | payer SELFPAY | END 2024-12-17 13:50 | disposition home or self-care (01) | LOC: HO.HAP 13:49 | PROVIDERS: Visit Provider Family Medicine | DX: Z13.89 Encounter for screening for other disorder (principal) ==

== ENCOUNTER 2024-12-31 08:12 | Outpatient (AMB) | payer MEDICARE, MEDICAID, SELFPAY ==
--- NOTE | 2024-12-31 08:28 | A.OFFVIS_ITS ---
Vital Signs 12/31/24 08:41 Height 5 ft 3 in Weight 155 lb BMI 27.5 Intake Visit Reasons: Est Patient -Pain in right knee Intake Note: Nba is a 69 year old male who presents today for a follow up on his right knee OA. Patient was last seen with Dr. Garcia in 2022 for his right knee and was referred to a software licensing specialist. He had recent referral from pain management to discuss consideration for a knee replacement. Patient reports bilateral knee pain and intermittent swelling. He reports his knees frequently gives out causing him to have multiple falls hitting his knees. He uses a cane with ambulation. He states recent cervical and lumbar disc surgery. Allergies No Known Allergies Allergy (Verified 12/31/24 08:44) Medication List - Last Reconciled 12/31/24 by Murphy Cardoza PA-C acamprosate 666 mg PO TID buprenorphine-naloxone 8-2 mg 1 film sublingual TID bupropion HCl SR 100 mg PO BID gabapentin 300 mg PO TID gabapentin 600 mg PO TID omeprazole 30 mg PO BID HPI HPI Est Patient -Pain in right knee: Details: 69-year-old gentleman presents to the office today for ongoing right knee pain. He had seen Dr. Garcia in the past for evaluation of right knee pain and was found to have severe arthritis of the right knee with severe varus deformity. The plan was to proceed with a knee replacement. He did see pain management and had RFA which she states was only helpful for approximately 3 days. The patient does have a significant history of opiate, alcohol and cocaine use. The patient states he has been clean for approximately 8 years. He is on Suboxone. He does smoke a proximally 5 cig a day. The patient states he lives by himself but he is in the same unit as a sister. He does have a support system. He recently had back surgery which was successful. [facility] Medical History Hx of transfusion of packed red blood cells GI bleed Peptic ulcer Back pain Arthritis GERD (gastroesophageal reflux disease) Numbness AAA (abdominal aortic aneurysm) History of kidney stones C6 radiculopathy Hard of hearing Central stenosis of spinal canal Knee osteoarthritis Trauma in childhood Erectile dysfunction Anemia Adrenal adenoma Tobacco abuse Pulmonary nodules Depression History of ETOH abuse Osteoarthritis of knee, unspecified Opioid abuse with other opioid-induced disorder Chronic pain syndrome Disc degeneration, lumbar Spondylosis of lumbar spine Surgical History History of esophagogastroduodenoscopy (EGD) Hx of fusion of cervical spine (08/08/23) History of extraction of renal calculus H/O colonoscopy H/O inguinal hernia repair Social History Household Members: Family Housing: House Housing Other:: 2 family house Are you a primary nurse behavioral health care to a significant other at home: No Do you presently have visiting nurse or other home services: No Alcohol intake: former Comment: see charting this is baseline md. Katy aware Patient Tobacco Use Status: Current everyday Tobacco user Tobacco use type: Cigarette Cigarettes Per Day: 2 e-Cigarette/Vaping Use: Never Used Substance Use Type: Marijuana service: No Physical Exam Vital Signs: BMI result Body Mass Index 27.5 Assessment & Plan Assessment & Plan (1) Osteoarthritis of right knee: Code(s): M17.11 - Unilateral primary osteoarthritis, right knee Category: Medical Plan: This is a 66 year old man with severe varus pattern bilateral knee OA. He has pain with daily activity, worse with ambulation or using stairs. He cannot walk for more than a few minutes without having to stop. He limps and is in pain when standing. I discussed his diagnosis and treatment options. He discuss total knee arthroplasty with Dr. Garcia a few years ago and now that he has had his spine surgery he would like to proceed. I explained he would need to meet with our nurse navigator and also go through medical clearance before proceeding. In his chart there is note of an abdominal aortic aneurysm. The patient states he is followed by [facility] cardiology. Information given to Lor about proceeding with surgery and the patient will be booked accordingly. Orders: Orders XR knee RT 3V Today M17.11 - Unilateral primary osteoarthritis, right knee Coding Level of Care Code Est Pt Level 4 (72756) Complex EM visit Add On G2211 Diagnoses Osteoarthritis of right knee M17.11
[2024-12-31 08:41] VITALS: BMI 27.5
== END 2024-12-31 09:32 | disposition home or self-care (01) ==
LOC: HO.HOS 08:13
PROVIDERS: PCP Family Medicine; Visit Provider Physician Assistant
DX: M17.11 Unilateral primary osteoarthritis, right knee (principal)
CPT/HCPCS: 99214; G2211

== ENCOUNTER → 2024-12-31 08:14 | Outpatient (BNV) | payer MEDICARE, MEDICAID, SELFPAY | PROVIDERS: Visit Provider Radiology Vascular & Interventional Radiology | DX: M17.11 Unilateral primary osteoarthritis, right knee (principal) | CPT/HCPCS: 73562 ==

== ENCOUNTER 2024-12-31 09:30 | Outpatient (REF) | payer MEDICARE, OTHER, SELFPAY ==
--- NOTE | ~2024-12-31 | XR_ITS ---
CLINICAL HISTORY: M17.11 - Unilateral primary osteoarthritis, right knee Three views of the right knee and single AP view of the left knee Comparison: DX/SR - XR KNEE 1-2 VIEWS RIGHT - 08/31/22 09:00 EDT Findings: Old right patellar fracture suggested. No dislocations. Severe tricompartmental degenerative change bilaterally, most pronounced within the medial compartment. No joint effusion. No radiopaque foreign body. IMPRESSION: Severe tricompartmental degenerative change, most pronounced within the medial compartment bilaterally. No fracture or dislocation. Old right patellar fracture suggested, displaced. This document has been electronically signed by: Doug Gould MD on 12/31/2024 11:53:58
== END 2024-12-31 09:31 | disposition home or self-care (01) ==
LOC: HO.HOSX 09:30
PROVIDERS: Visit Provider Physician Assistant
DX: M17.11 Unilateral primary osteoarthritis, right knee (principal)
CPT/HCPCS: 73562; 99212

== ENCOUNTER 2025-01-29 10:56 | Outpatient (AMB) | payer MEDICARE, MEDICAID, SELFPAY ==
--- NOTE | 2025-01-29 11:06 | MHC.OFFVIS ---
Intake Visit Reasons: OV-Right knee-Discuss Right total knee 4 WK F/U Intake Note: Nba is a 69 year old male who presents today for a follow up of his Severe Varus Pattern Bilateral Knee OA. We have discussed TKA in the past with this patient but held off on surgery as he had upcoming spinal surgery. He has had the C Spinal Fusion surgery and is now looking to move forward with TKA. Current tobacco user - about 2 cigarettes a day Abdominal Aortic Aneurysm - [facility]iology Allergies No Known Allergies Allergy (Verified 12/31/24 08:44) HPI HPI OV-Right knee-Discuss Right total knee 4 WK F/U: Details: Nba is a 69 year old male who presents today for a follow up of his Severe Varus Pattern Bilateral Knee OA. We have discussed TKA in the past with this patient but held off on surgery as he had upcoming spinal surgery. He has had the C Spinal Fusion surgery and is now looking to move forward with TKA. He can not walk on his right leg. He has a severe flexion contracture and a severe varus deformity. He uses 2 canes to ambulate. He has stopped smoking and he is 2 years sober from cocaine abuse. He is on buprenorphine-naloxone. He has been seen by multiple orthopedic surgeons in the past and I saw him about 2 years ago and we obtained medical records but he had several spine surgeries and is now returning. [facility] Medical History Hx of transfusion of packed red blood cells GI bleed Peptic ulcer Back pain Arthritis GERD (gastroesophageal reflux disease) Numbness AAA (abdominal aortic aneurysm) History of kidney stones C6 radiculopathy Hard of hearing Central stenosis of spinal canal Knee osteoarthritis Trauma in childhood Erectile dysfunction Anemia Adrenal adenoma Tobacco abuse Pulmonary nodules Depression History of ETOH abuse Osteoarthritis of knee, unspecified Opioid abuse with other opioid-induced disorder Chronic pain syndrome Disc degeneration, lumbar Spondylosis of lumbar spine Surgical History History of esophagogastroduodenoscopy (EGD) Hx of fusion of cervical spine (08/08/23) History of extraction of renal calculus H/O colonoscopy H/O inguinal hernia repair Social History Household Members: Family Housing: House Housing Other:: 2 family house Are you a primary nursing care attendant to a significant other at home: No Do you presently have visiting nurse or other home services: No Alcohol intake: former Comment: see charting this is baseline md. Burns aware Patient Tobacco Use Status: Current everyday Tobacco user Tobacco use type: Cigarette Cigarettes Per Day: 2 e-Cigarette/Vaping Use: Never Used Substance Use Type: Marijuana service: No Physical Exam Exam Exam: Walks with 2 canes and is very slow and unsteady. Severe varus deformity bilaterally Right great than left. He has a 40 deg flexion contracture and and flexion to 100deg. He has a 1+ dorsalis pedis pulse and his sensation is intact to light touch right lower extremity. Results Reviewed Results Reviewed: I personally reviewed relevant radiographs. Severe bilateral knee osteoarthritis most prominent in the right Assessment & Plan Assessment & Plan (1) Osteoarthritis of right knee: Code(s): M17.11 - Unilateral primary osteoarthritis, right knee Category: Medical Plan: This is a 69-year-old gentleman who has severe osteoarthritis of the right knee. He has a 15 degree valgus deformity with a severe flexion contracture. Reading his cardiology and preoperative visit notes he has been deemed to have well-controlled risk factors even though he does have a history of aortic aneurysm. My bigger concern is the severity of his deformity. I think he would best be served at a tertiary care center who has more experience with this kind of deformity. I discussed this with him and he is amenable. I will make a referral to [facility]. Coding Level of Care Code Est Pt Level 3 (08793) Diagnoses Osteoarthritis of right knee M17.11
== END 2025-01-29 11:44 | disposition home or self-care (01) ==
LOC: HO.HOS 10:57
PROVIDERS: Visit Provider Orthopaedic Surgery
DX: M17.11 Unilateral primary osteoarthritis, right knee (principal)
CPT/HCPCS: 99213

== ENCOUNTER → 2025-01-29 10:56 | Outpatient (BNVA) | payer MEDICARE, OTHER, SELFPAY | PROVIDERS: Visit Provider Orthopaedic Surgery | DX: M17.11 Unilateral primary osteoarthritis, right knee (principal) | CPT/HCPCS: 99212 ==

== ENCOUNTER 2025-02-18 15:39 | Outpatient (REF) | payer SELFPAY | END 2025-02-18 15:40 | disposition home or self-care (01) | LOC: HO.HAP 15:39 | PROVIDERS: Visit Provider Family Medicine | DX: Z46.1 Encounter for fitting and adjustment of hearing aid (principal); H90.3 Sensorineural hearing loss, bilateral | CPT/HCPCS: V5266 ==

== ENCOUNTER 2025-03-13 15:57 | Outpatient (REF) | payer MEDICARE, SELFPAY ==
--- NOTE | ~2025-03-13 | CT_ITS ---
EXAMINATION: CT LUMBAR SPINE WITHOUT CONTRAST CLINICAL INFORMATION: Postop, lumbar fusion. COMPARISON: July 15, 2024 x-ray TECHNIQUE: Axial imaging was performed from T11 through the lower sacrum coccygeal region without IV contrast. Coronal and sagittal reformatted images were generated from the original axial data set. ALARA: The examination used one or more of the following radiation dose reduction techniques: Automated exposure control, iterative reconstruction, and/or adjustment of mA and/or kV. FINDINGS: There is dependent atelectasis in the posterior right lower lobe. There is a punctate 2 mm stone in the mid right kidney and a more granular appearing 4 mm stone in the lower pole. There is a 9 x 14 mm nodule in the left adrenal gland that measures -22 Hounsfield units. A few pseudodiverticula are visible in the sigmoid colon. There are 5 [id number]-jgy-oevxres lumbar segments. Posterior pedicle screws and rods are present at L3-L5 with interbody spacers. There is a limbus vertebra anterior superior L3. T12-L1: There is moderate disc space narrowing with vacuum phenomena and broad-based disc bulge. There are endplate osteophytes. L1-L2: There is [id number] disc space narrowing with degenerative endplate irregularity and osteophytes. There is circumferential broad-based disc bulge and mild facet arthropathy with mild spinal stenosis L2-L3: There is mild disc space narrowing with circumferential broad-based disc bulge and moderate facet arthropathy resulting in at least moderate spinal stenosis, with moderate right and mild left foraminal narrowing. L3-L4: Posterior pedicle screw surgically fused this level. There is interbody spacer with evidence of a 3 mm subsidence involving the posterior lateral margin (coronal CT #7 image ) at L3. There is faint calcification in the interbody space with areas of integration into the adjacent vertebral bodies. Spinal canal is obscured by beam hardening artifact. There is possibly underlying mild to moderate spinal stenosis but not well-demonstrated due to artifact. Neural foramina are also obscured. There is likely mild to moderate right and moderate left foraminal narrowing. L4-L5: Posterior fusion with pedicle screws and rods. There is interbody spacer without clear subsidence adjacent vertebral bodies. However, there are degenerative cystic changes and scalloping of the endplates of L4 and L5. There is also subchondral sclerosis, especially within superior L5. There is faint calcific density in the interbody space likely with areas of induration into the adjacent vertebral bodies. The spinal canal is obscured by beam hardening artifact. Spinal stenosis is not ruled in or out. There is mild bilateral foraminal narrowing. L5-S1: There is mild loss disc height and vacuum phenomena with circumferential broad-based disc bulge and moderate facet arthropathy. There is no spinal stenosis. There is mild to moderate foraminal narrowing, greater on the left. CT/CT lumbar spine wo IV con IMPRESSION: Posterior lumbar interbody fusion L3-L5 with interbody spacers. There is suspected 3 mm subsidence involving the L3-4 interbody spacer on the posterior right margin of the spacer into L3. L4-5 interbody spacer is not clearly protruding into vertebral bodies. However, there is scalloping and degenerative cystic changes in the endplates and sclerosis of the superior L5 endplate. There is evidence of bony integration across L3-4 and L4-5. Degenerative disc disease and facet arthropathy, as described above. Nephrolithiasis. There are 2 small stones in the right kidney. 9 x 14 mm benign lipid rich left adrenal gland adenoma. Electronically signed by: Jignesh Ruvalcaba MD 03/13/2025 04:41 PM EST
== END 2025-03-13 15:58 | disposition home or self-care (01) ==
LOC: HO.CT 15:57
PROVIDERS: Visit Provider Physician Assistant
DX: Z98.890 Other specified postprocedural states (principal)
CPT/HCPCS: 72131

== ENCOUNTER → 2025-03-13 15:59 | Outpatient (BNV) | payer MEDICARE, SELFPAY | PROVIDERS: Visit Provider Radiology Diagnostic Radiology | DX: M51.369 Other intervertebral disc degeneration, lumbar region without mention of lumbar back pain or lower extremity pain (principal); E27.9 Disorder of adrenal gland, unspecified; N20.0 Calculus of kidney; Z98.890 Other specified postprocedural states | CPT/HCPCS: 72131 ==